=== PATIENT | female | born 1950 ===

== ENCOUNTER 2017-10-17 11:42 | Inpatient (IN) | payer MEDICARE ==
[~2017-10-17] VITALS: Ht 152.4 cm; Wt 32.7 kg
[2017-10-17] MEDS ORDERED: NKM (15:41)
[2017-10-17 16:00] VITALS: BP 129/65
--- NOTE | 2017-10-17 17:39 | Consultation ---
History of Present Illness General Date patient seen: Oct 17, 2017 Referring physician: Reji Reason for Consultation: abdomina pain Present Illness HPI 67F transferred from [place] to [facility] for acutely worsening abdominal pain, nausea , emesis, and syncopal episode. As patient and partner, she has been ill for over 1 year now with chronic abdominal pain and PO intolerance. Has been admitted to [facility] prior but does not recall if any etiology identified. Had abdominal surgery to evaluate and a benign "mass" was removed via salpingo- oophorectomy. States that 1 year ago she was well and weighted 125lbs. Since has not been eating and really unwell with pain and intolerance and now weights close to 70lbs. Last night attempted to eat soup but had extreme abdominal pain and developed nausea and 1 episode of emesis; then had syncopal episode. Went to [place] for evaluation and was then transferred to [facility] CT A/P without contrast demonstrated jejunal thickening but no acute abnormality. Leukocytosis of 20k. surgery called to evaluate. currently states "big appetite" but food aversion because of pain. refused to eat anything or drink anything "would rather ". pain described as cramping/sharp lower abdominal pain. some reflux. dry throat with difficulty swallowing. no n/v/f/c. history of chronic constipation. Allergies: Coded Allergies: AMOXICILLIN (Verified Adverse Reaction, Unknown, 10/17/17) Patient reports she fainted a couple years ago when she took amoxicillin Medication History Scheduled No Known Medications* (NKM - No Known Medications*), 0 ., (Reported) Patient History History Provided By: Patient, Family Member, Medical Record Healthcare decision maker Resuscitation status Full Code Advanced Directive on File Past Medical/Surgical History Past Medical/Surgical History: (1) Abdominal pain (2) History of food intolerance (3) Chronic abdominal pain (4) Failure to thrive in adult Review of Systems Constitutional: Reports: weakness Eye: Denies: no symptoms, see HPI, eye pain, blurred vision, tearing, double vision, nose pain, nose congestion, acuity changes, discharge, other ENT: Reports: mouth pain Respiratory: Denies: no symptoms, see HPI, cough, orthopnea, shortness of breath, stridor, wheezing, [place], sputum, other Cardiovascular: Denies: no symptoms, see HPI, chest pain, edema, palpitations, syncope, PND, other Gastrointestinal: Reports: abdominal pain, constipation Genitourinary: Denies: no symptoms, see HPI, discharge, dysuria, frequency, hematuria, pain, retention, incontinence, urgency, vag bleed/dc, other Musculoskeletal: Denies: no symptoms, see HPI, back pain, gout, joint pain, joint swelling, muscle pain, muscle stiffness, other Skin: Reports: dryness, Denies: no symptoms, see HPI, rash, change in color, change in hair/nails, lesions, other Psychiatric: Reports: anxiety Neurological: Denies: no symptoms, see HPI, headache, numbness, paresthesia, seizure, tingling, tremors, focal weakness, syncope, dizziness, other Endocrine: Denies: no symptoms, see HPI, excessive sweating, flushing, intolerance to temperature, increased thirst, increased urine, unexplained weight loss, other Hematologic/Lymphatic: Denies: no symptoms, see HPI, anemia, blood clots, easy bleeding, easy bruising, swollen glands, diathesis, other Physical Exam General Appearance: no apparent distress, alert, cachetic Lines, tubes and drains: peripheral HEENT: normocephalic, PERRL, other - dry Neck: supple, normal inspection Respiratory/Chest: lungs clear, normal breath sounds, no respiratory distress, no accessory muscle use Cardiovascular/Chest: normal peripheral pulses, regular rhythm Abdomen: normal bowel sounds, non tender, soft, no organomegaly, no mass Extremities: normal inspection Skin Exam: warm/dry Neurologic: alert, oriented x 3, responsive Height (Feet): 5 Weight (Pounds): 75 Assessment/Plan Problem List: (1) Chronic abdominal pain Assessment & Plan: 67F with chronic abdominal pain, po intolerance, failure to thrive, with acute episode of abdominal pain. was unable to tolerate soup yesterday, had pain, then emesis, then syncope. has long history of po intolerance and abdominal pain. has lost 40+ pounds over the last year because of this. states she was at [facility] with extensive work up but does not recall what or treatment. Currently pain improved but she is not willing to attempt oral intake. leukocytosis etiology needs work up. transferred from [place] for further care. -Obtain records from [facility]. -okay for diet if patient will eat -IV fluids -IV Abx -repeat CT with oral and IV contrast. non contrast CT not diagnostic but did show area of thickening in jejunum that should have better follow up eval. -trend labs -GI consult -will follow with recs thank you for this consultation. ICD Codes: R10.9 - Unspecified abdominal pain; G89.29 - Other chronic pain SNOMED: [id number] Status: stable Siva Avalos Oct 17, 2017 17:38
[2017-10-17] MEDS ORDERED: Morphine Sulfate 2mg/ml Inj IVP PRN (17:45)
[2017-10-17] MEDS ORDERED: D5 1/2NS 1,000 ML IV SCH (17:45)
[2017-10-17 19:06] LABS: BASOPHILS % (AUTO) 0.8 % (0.0-2.0); EOSINOPHILS % (AUTO) 0.3 % (0.0-3.0); HEMATOCRIT 37.6 % (37.0-47.0); HEMOGLOBIN 12.9 G/DL (12.0-16.0); MEAN CORPUSCULAR VOLUME 89 FL (80-99); MONOCYTES % (AUTO) 9.7 % (1.0-10.0); NEUTROPHILS % (AUTO) 70.2 % (45.0-75.0); PLATELET COUNT 206 K/UL (150-450); RED BLOOD COUNT 4.25 M/UL (4.20-5.40); RED CELL DISTRIBUTION WIDTH 10.5 % (11.6-14.8); WHITE BLOOD COUNT 12.4 K/UL (4.8-10.8)
[2017-10-17 19:08] LABS: ANION GAP 12 mmol/L (5-15); BLOOD UREA NITROGEN 19 mg/dL (7-18); CARBON DIOXIDE 25 MMOL/L (21-32); CHLORIDE 104 MMOL/L (98-107); POTASSIUM 3.8 MMOL/L (3.5-5.1); SODIUM 140 MMOL/L (136-145)
[2017-10-17] MEDS ORDERED: Zosyn 3.375gm q8h **Extended infusion IVPB ONE ×2 (19:30)
[2017-10-17 20:00] VITALS: BP 116/50
[2017-10-17] MEDS: Heparin 5000 units/ml inj SUBQ SCH (21:00)
[2017-10-18] VITALS (7 sets, daily range): BP systolic 98–151; BP diastolic 50–69
[2017-10-18] MEDS ORDERED: Piperacillin/Tazobactam 3.375 GM in NS 110 ML IVPB SCH (06:00)
[2017-10-18 07:42] LABS: ALANINE AMINOTRANSFERASE 8 U/L (12-78); ALBUMIN/GLOBULIN RATIO 0.9 (1.0-2.7); ALKALINE PHOSPHATASE 58 U/L (46-116); AMYLASE 66 U/L (25-115); ANION GAP 11 mmol/L (5-15); ASPARTATE AMINO TRANSFERASE 15 U/L (15-37); BILIRUBIN,TOTAL 0.7 MG/DL (0.2-1.0); BLOOD UREA NITROGEN 14 mg/dL (7-18); CALCIUM 7.8 MG/DL (8.5-10.1); CARBON DIOXIDE 22 MMOL/L (21-32); CHLORIDE 107 MMOL/L (98-107); CREATININE 0.9 MG/DL (0.55-1.30); POTASSIUM 3.6 MMOL/L (3.5-5.1); SODIUM 140 MMOL/L (136-145)
[2017-10-18 07:54] LABS: BASOPHILS % (AUTO) 0.5 % (0.0-2.0); EOSINOPHILS % (AUTO) 0.3 % (0.0-3.0); HEMATOCRIT 36.4 % (37.0-47.0); HEMOGLOBIN 12.7 G/DL (12.0-16.0); LYMPHOCYTES % (AUTO) 19.5 % (20.0-45.0); MEAN CORPUSCULAR VOLUME 90 FL (80-99); MONOCYTES % (AUTO) 7.8 % (1.0-10.0); NEUTROPHILS % (AUTO) 71.9 % (45.0-75.0); PLATELET COUNT 197 K/UL (150-450); RED BLOOD COUNT 4.04 M/UL (4.20-5.40); RED CELL DISTRIBUTION WIDTH 10.9 % (11.6-14.8); WHITE BLOOD COUNT 9.9 K/UL (4.8-10.8)
[2017-10-18] MEDS: Heparin 5000 units/ml inj SUBQ SCH ×3 (09:00→20:38)
[2017-10-18] MEDS ORDERED: Morphine Sulfate 2mg/ml Inj IVP PRN (11:00)
--- NOTE | 2017-10-18 11:05 | Wound Care Consultation ---
Wound Assessment Wound Assessment #1: Wound Number: 1 Wound Present on Admission: Yes New Wound: No Status Change of Wound: No Wound Location Body Site: other - sacrococcygeal extending to left buttocks Wound Type: pressure ulcer Laquita Test: Does not Laquita Pressure Ulcer Stage: Deep Tissue Injury Wound Thickness: Full Thickness Wound Length: 10.0 Wound Width: 8.0 Wound Depth: utd Percent of Wound [place]/Red: 50 - deep red Percent of Wound Purple/Maroon: 50 - middle noted deep red appearing maroon Wound Drainage Odor: None/Absent Tissue Surrounding Wound: Erythemic Wound General Appearance: Reddened - maroon Wound Assessment #2: Wound Number: 2 Wound Present on Admission: Yes New Wound: No Status Change of Wound: No Wound Location Body Site Modif: left Wound Location Body Site: heel Laquita Test: Laquita - blanchable redness Wound Length: 4.0 Wound Width: 4.0 Percent of Wound [place]/Red: 100 Wound Drainage Amount: None Wound Drainage Odor: None/Absent Tissue Surrounding Wound: Intact Wound General Appearance: Reddened, Open to air Wound Assessment #3: Wound Number: 3 Wound Present on Admission: Yes New Wound: No Status Change of Wound: No Wound Location Body Site Modif: right Wound Location Body Site: heel Laquita Test: Laquita - blanchable redness Wound Length: 4.0 Wound Width: 4.0 Percent of Wound [place]/Red: 100 Wound Drainage Amount: None Wound Drainage Odor: None/Absent Tissue Surrounding Wound: Intact Wound General Appearance: Reddened Wound Comment #1 Sacrococcygeal extending to left buttocks deep tissue injury. #2 left and right heel blanchable redness- continue to monitor for any further changes to skin, dry skin. patient able to self reposition, explained risks and benefits of repositioning and offloading heels and sacral area. verbalize she understands. Recommendation. -Local wound care as ordered. -Turn and reposition, encourage repositioning. -Keep clean and dry. -Optimize nutrition -Apply low air loss SPR mattress for wound and skin management. -Offload heels. -Assess and notify MD for any further changes of condition to skin noted. CHELSIE TORRES Oct 18, 2017 11:05
--- NOTE | 2017-10-18 11:07 | Consultation ---
History of Present Illness General Date patient seen: Oct 18, 2017 Time patient seen: 11:07 Referring physician: Reji Reason for Consultation: abdomina pain Present Illness HPI 67 y/o F with hx of chronic abd pain, PO intolerance and failure to thrive is transferred from [place] to [facility] 10/17 for acutely worsening abd pain, nausea, emesis and syncopal episode. She has been ill for over a year with chronic abd pain and PO intolerance with prior hospitalizations at [facility]. Underwent surgery to evaluate had a salpingo-oophorectomy for a supposedly benign mass. 1 year ago she weighted 125 lbs, now shes in the 70s lbs.1 day [employer] developed extreme abd pain, nausea and 1 episode of emesis while attempted to eat soup; this was followed by a syncopal episode. CT A/P showed jejunal thickening but no acute abnormality and WBC up to 20k. Denies f/c. +chronic constipation, +dry throat and difficulty swallowing. Afebrile Leukocytosis here initially 12.4, now rseolved. Started on empiric IV Zosyn. Surgery following. Allergies: Coded Allergies: AMOXICILLIN (Verified Adverse Reaction, Unknown, 10/17/17) Patient reports she fainted a couple years ago when she took amoxicillin Medication History Scheduled No Known Medications* (NKM - No Known Medications*), 0 ., (Reported) Patient History Healthcare decision maker Resuscitation status Full Code Advanced Directive on File Patient History Narrative PMhx: as above Shx: reviewed Fhx: non contributory Review of Systems All Other Systems: negative except mentioned in HPI Physical Exam Physical Exam Narrative General Appearance: no apparent distress, alert, cachetic Lines, tubes and drains: peripheral HEENT: normocephalic, PERRL, other - dry Neck: supple, normal inspection Respiratory/Chest: lungs clear, normal breath sounds, no respiratory distress, no accessory muscle use Cardiovascular/Chest: normal peripheral pulses, regular rhythm Abdomen: normal bowel sounds, non tender, soft, no organomegaly, no mass Extremities: normal inspection Skin Exam: warm/dry Neurologic: alert, oriented x 3, responsive Last 24 Hour Vital Signs Date Time Temp Pulse Resp B/P (MAP) Pulse Ox O2 Delivery O2 Flow Rate FiO2 10/18/17 08:36 97.9 40 16 144/61 98 Room Air 10/18/17 04:00 97.0 50 18 111/50 97 Room Air 10/18/17 00:00 97.5 60 18 120/50 96 Room Air 10/17/17 20:00 97.2 51 18 116/50 97 Room Air 10/17/17 16:00 97.9 54 18 129/65 98 Room Air Intake and Output 10/17/17 10/18/17 19:00 07:00 Intake Total 1000 ml Balance 1000 ml Intake IV Total 1000 ml # Voids 2 3 Laboratory Tests Test 10/17/17 18:45 10/18/17 05:10 White Blood Count 12.4 K/UL (4.8-10.8) H 9.9 K/UL (4.8-10.8) Red Blood Count 4.25 M/UL (4.20-5.40) 4.04 M/UL (4.20-5.40) L Hemoglobin 12.9 G/DL (12.0-16.0) 12.7 G/DL (12.0-16.0) Hematocrit 37.6 % (37.0-47.0) 36.4 % (37.0-47.0) L Mean Corpuscular Volume 89 FL (80-99) 90 FL (80-99) Mean Corpuscular Hemoglobin 30.4 PG (27.0-31.0) 31.5 PG (27.0-31.0) H Mean Corpuscular Hemoglobin Concent 34.4 G/DL (32.0-36.0) 34.9 G/DL (32.0-36.0) Red Cell Distribution Width 10.5 % (11.6-14.8) L 10.9 % (11.6-14.8) L Platelet Count 206 K/UL (150-450) 197 K/UL (150-450) Mean Platelet Volume 6.1 FL (6.5-10.1) L 7.4 FL (6.5-10.1) Neutrophils (%) (Auto) 70.2 % (45.0-75.0) 71.9 % (45.0-75.0) Lymphocytes (%) (Auto) 19.0 % (20.0-45.0) L 19.5 % (20.0-45.0) L Monocytes (%) (Auto) 9.7 % (1.0-10.0) 7.8 % (1.0-10.0) Eosinophils (%) (Auto) 0.3 % (0.0-3.0) 0.3 % (0.0-3.0) Basophils (%) (Auto) 0.8 % (0.0-2.0) 0.5 % (0.0-2.0) Sodium Level 140 MMOL/L (136-145) 140 MMOL/L (136-145) Potassium Level 3.8 MMOL/L (3.5-5.1) 3.6 MMOL/L (3.5-5.1) Chloride Level 104 MMOL/L (98-107) 107 MMOL/L (98-107) Carbon Dioxide Level 25 MMOL/L (21-32) 22 MMOL/L (21-32) Anion Gap 12 mmol/L (5-15) 11 mmol/L (5-15) Blood Urea Nitrogen 19 mg/dL (7-18) H 14 mg/dL (7-18) Creatinine 1.0 MG/DL (0.55-1.30) 0.9 MG/DL (0.55-1.30) Estimat Glomerular Filtration Rate 55.0 mL/min (>60) > 60 mL/min (>60) Glucose Level 92 MG/DL (74-106) 116 MG/DL (74-106) H Calcium Level 8.0 MG/DL (8.5-10.1) L 7.8 MG/DL (8.5-10.1) L Lactic Acid Level 1.20 mmol/L (0.66-2.22) Phosphorus Level 3.0 MG/DL (2.5-4.9) Magnesium Level 1.8 MG/DL (1.8-2.4) Total Bilirubin 0.7 MG/DL (0.2-1.0) Aspartate Amino Transf (AST/SGOT) 15 U/L (15-37) Alanine Aminotransferase (ALT/SGPT) 8 U/L (12-78) L Alkaline Phosphatase 58 U/L (46-116) C-Reactive Protein, Quantitative 4.8 mg/dL (0.00-0.90) H Total Protein 6.3 G/DL (6.4-8.2) L Albumin 3.0 G/DL (3.4-5.0) L Globulin 3.3 g/dL Albumin/Globulin Ratio 0.9 (1.0-2.7) L Prealbumin Pending Amylase Level 66 U/L (25-115) Lipase 170 U/L (73-393) Height (Feet): 5 Weight (Pounds): 75 Medications Current Medications Medications (Trade) Dose Ordered Sig/Riaz Route PRN Reason Start Time Stop Time Status Last Admin Dose Admin Acetaminophen (Tylenol) 650 mg Q6H PRN ORAL Mild Pain/Temp > 100.5 10/18/17 11:00 11/16/17 10:59 Dextrose/ Electrolytes 1,000 ml @ 100 mls/hr Q10H IV 10/18/17 16:00 11/16/17 15:59 Heparin Sodium (Porcine) (Heparin 5000 units/ml) 5,000 units EVERY 12 HOURS SUBQ 10/18/17 11:00 11/16/17 10:59 Morphine Sulfate (Morphine Sulfate) 2 mg Q6H PRN IVP Severe Pain (Pain Scale 7-10) 10/18/17 11:00 10/24/17 10:59 Ondansetron HCl (Zofran) 4 mg Q4H PRN IVP Nausea & Vomiting 10/18/17 11:00 11/16/17 10:59 Piperacillin Sod/ Tazobactam Sod 3.375 gm/Sodium Chloride 110 ml @ 27.5 mls/hr EVERY 8 HOURS IVPB 10/18/17 14:00 10/25/17 05:59 Assessment/Plan Assessment/Plan Abx: Zosyn 10/17- Assessment: Acute on chronic post-pandrial abd pain- unclear etiology. R/o acute infectious process. DDx of Etiology of chronic abd pain is extensive and includes infectious, auto-immune (connective tissue disorders, vasculitis such as Polyarteritis nodosa), inflammatory and psychogenic/psicosomatic. As far of infectious process r/o HIV, mycobacterial, histoplasmosis and parasitic causes. Dry throat and difficulty swallowing also raises suspicion of auto-immune process/connective tissue disorder such as Scleroderma. -CT abd/p w/ : Apparent mild thickening of the wall of the descending colon not optimally evaluated on this study. Please correlate for colitis.Mild free fluid within the pelvis. Suggestion of fibroid uterus. Atherosclerotic vascular disease -non contrast CT (@[facility])- jejunal wall thickening -CRP midly elevated at 4.8 Failure to thrive Leukocytosis, resolved -afebrile s/p salpingo-oopherectomy for bening mass Plan: -Continue empiric Zosyn #2/7-10 for possible acute superimposed colitis -obtain: HIV ag/b and VL, Qtb gold, histoplasma ag urine and ab, RPR, ANCA/ANCA , C3/C3, RF, CCP, hep panel, UPEP/SPEP, ESR, o+p x3, giardia/cyclospora/isospora /microsporidum stool, u/a with reflex -f/u cx -Monitor CBC/BMP, temperatures -surgery following -consider GI eval as well -if above w/u unrevealing may need intestinal biopsy to evaluate for CARVALHO/ vasculitis or other etiologies Thank you for this consultation. Will continue to follow along with you. Discussed with RN and at bedside. Aimee Deng M.D. Oct 18, 2017 11:07
--- NOTE | 2017-10-18 11:46 | General Surgery Progress Note ---
General Surgery-Progress Note Subjective Additional Comments Patient transferred to tele for bradycardia. today she is very emotionally uncertain. states she wants to eat but cannot. has a serious food aversion. states she does not want any artificial nutrition and absolutely refuses tubes or feeds. she states no pain currently but feels as if she may have severe pain with po intake. she is afraid to eat but fear is without organic etiology. she is emotionally and mentally not stable and cries multiple times during visit without reason. in middle of conversation she will begin to cry. she seems afraid but not of people but of anything (food, meds, fluids) entering her system. her story is not always consistent as yesterday she states that she had syncopal episode after attempting to eat soup. today she states that syncopal episode was after a self administered enema for constipation. CT reviewed. labs improved. Objective Last 24 Hour Vital Signs Date Time Temp Pulse Resp B/P (MAP) Pulse Ox O2 Delivery O2 Flow Rate FiO2 10/18/17 08:36 97.9 40 16 144/61 98 Room Air 10/18/17 04:00 97.0 50 18 111/50 97 Room Air 10/18/17 00:00 97.5 60 18 120/50 96 Room Air 10/17/17 20:00 97.2 51 18 116/50 97 Room Air 10/17/17 16:00 97.9 54 18 129/65 98 Room Air I&O Intake and Output 10/17/17 10/18/17 19:00 07:00 Intake Total 1000 ml Balance 1000 ml Intake IV Total 1000 ml # Voids 2 3 Cardiovascular: other - bradycardic Respiratory: clear Abdomen: soft, flat, other - very cachectic Extremities: no edema, no tenderness Laboratory Tests Test 10/17/17 18:45 10/18/17 05:10 White Blood Count 12.4 K/UL (4.8-10.8) H 9.9 K/UL (4.8-10.8) Red Blood Count 4.25 M/UL (4.20-5.40) 4.04 M/UL (4.20-5.40) L Hemoglobin 12.9 G/DL (12.0-16.0) 12.7 G/DL (12.0-16.0) Hematocrit 37.6 % (37.0-47.0) 36.4 % (37.0-47.0) L Mean Corpuscular Volume 89 FL (80-99) 90 FL (80-99) Mean Corpuscular Hemoglobin 30.4 PG (27.0-31.0) 31.5 PG (27.0-31.0) H Mean Corpuscular Hemoglobin Concent 34.4 G/DL (32.0-36.0) 34.9 G/DL (32.0-36.0) Red Cell Distribution Width 10.5 % (11.6-14.8) L 10.9 % (11.6-14.8) L Platelet Count 206 K/UL (150-450) 197 K/UL (150-450) Mean Platelet Volume 6.1 FL (6.5-10.1) L 7.4 FL (6.5-10.1) Neutrophils (%) (Auto) 70.2 % (45.0-75.0) 71.9 % (45.0-75.0) Lymphocytes (%) (Auto) 19.0 % (20.0-45.0) L 19.5 % (20.0-45.0) L Monocytes (%) (Auto) 9.7 % (1.0-10.0) 7.8 % (1.0-10.0) Eosinophils (%) (Auto) 0.3 % (0.0-3.0) 0.3 % (0.0-3.0) Basophils (%) (Auto) 0.8 % (0.0-2.0) 0.5 % (0.0-2.0) Sodium Level 140 MMOL/L (136-145) 140 MMOL/L (136-145) Potassium Level 3.8 MMOL/L (3.5-5.1) 3.6 MMOL/L (3.5-5.1) Chloride Level 104 MMOL/L (98-107) 107 MMOL/L (98-107) Carbon Dioxide Level 25 MMOL/L (21-32) 22 MMOL/L (21-32) Anion Gap 12 mmol/L (5-15) 11 mmol/L (5-15) Blood Urea Nitrogen 19 mg/dL (7-18) H 14 mg/dL (7-18) Creatinine 1.0 MG/DL (0.55-1.30) 0.9 MG/DL (0.55-1.30) Estimat Glomerular Filtration Rate 55.0 mL/min (>60) > 60 mL/min (>60) Glucose Level 92 MG/DL (74-106) 116 MG/DL (74-106) H Calcium Level 8.0 MG/DL (8.5-10.1) L 7.8 MG/DL (8.5-10.1) L Lactic Acid Level 1.20 mmol/L (0.66-2.22) Phosphorus Level 3.0 MG/DL (2.5-4.9) Magnesium Level 1.8 MG/DL (1.8-2.4) Total Bilirubin 0.7 MG/DL (0.2-1.0) Aspartate Amino Transf (AST/SGOT) 15 U/L (15-37) Alanine Aminotransferase (ALT/SGPT) 8 U/L (12-78) L Alkaline Phosphatase 58 U/L (46-116) C-Reactive Protein, Quantitative 4.8 mg/dL (0.00-0.90) H Total Protein 6.3 G/DL (6.4-8.2) L Albumin 3.0 G/DL (3.4-5.0) L Globulin 3.3 g/dL Albumin/Globulin Ratio 0.9 (1.0-2.7) L Prealbumin Pending Amylase Level 66 U/L (25-115) Lipase 170 U/L (73-393) Plan Problems: (1) Chronic abdominal pain Assessment & Plan: 67F with chronic abdominal pain, po intolerance, failure to thrive, with acute episode of abdominal pain. has long history of po intolerance and abdominal pain. has lost 40+ pounds over the last year because of this. states she was at [facility] with extensive work up but does not recall what or treatment. Currently pain improved but she is not willing to attempt oral intake. transferred from [place] for further care. leukocytosis resolved. bradycardic. no pain but serious food aversion. has emotional and mental issues that are apparent when she is interviewed. she refuses interventions when offered. she will agree to some (CT scan, IV fluids , now IV abx) but refuses to eat, take oral meds, feeds, etc. Repeat CT reviewed. pending final read -Psych Consult -Requested records from [facility]. pending delivery -okay for diet if patient will eat -IV fluids -IV Abx -will follow with recs thank you for this consultation. Siva Avalos Oct 18, 2017 11:46
--- NOTE | 2017-10-18 12:52 | Diagnostic Imaging Report ---
Indication: Abdominal pain Technique: Continuous helical transaxial imaging of the abdomen and pelvis was obtained from the lung bases to the pubic symphysis during intravenous contrast administration. Coronal 2-D reformats were also obtained. Study obtained in a Siemens sensation [address] Automatic Exposure Control was utilized. Total Dose length Product (DLP): 440.[address] Dose Index Volume (CTDIvol): 9.13 mGy Comparison: None Findings: The lung bases are clear. There is a relative paucity of intra-abdominal fat. The gallbladder, pancreas, kidneys and liver and spleen are unremarkable. The aorta is mildly calcified. No bowel obstruction or free air identified. There is a small amount of free fluid in the pelvis. Heterogeneous structure with calcification noted in the pelvis likely representing fibroid uterus. The bladder is nondistended. The appendix is not definitely seen. There is questionable wall thickening involving the visualized part of the descending colon. Correlate for colitis. IMPRESSION: Apparent mild thickening of the wall of the descending colon not optimally evaluated on this study. Please correlate for colitis. Mild free fluid within the pelvis. Suggestion of fibroid uterus. Atherosclerotic vascular disease The CT scanner at [facility] is accredited by the [employer] and the scans are performed using dose optimization techniques as appropriate to a performed exam including Automatic Exposure control.
[2017-10-18] MEDS: Piperacillin/Tazobactam 3.375 GM in NS 110 ML IVPB SCH ×2 (14:26→22:39)
--- NOTE | 2017-10-18 15:16 | Consultation ---
History of Present Illness General Date patient seen: Oct 18, 2017 Referring physician: Reji Reason for Consultation: abdomina pain Present Illness HPI 67 year old female with extensive hx of GI issues was taken to [facility] with CC of increased abdominal pain. After initial work up, she [place] [facility] [place]. Pt claims that anytime she eats, she vomits. The at the bed site states that she had extensive w/u at [facility], but he doesn't want us to ge their records. Allergies: Coded Allergies: AMOXICILLIN (Verified Adverse Reaction, Unknown, 10/17/17) Patient reports she fainted a couple years ago when she took amoxicillin Medication History Scheduled No Known Medications* (NKM - No Known Medications*), 0 ., (Reported) Patient History Healthcare decision maker Resuscitation status Full Code Advanced Directive on File Past Medical/Surgical History Past Medical/Surgical History: (1) History of food intolerance (2) Failure to thrive in adult Review of Systems Constitutional: Reports: malaise, weakness Eye: Reports: no symptoms ENT: Reports: no symptoms Physical Exam General Appearance: WD/WN, mild distress Lines, tubes and drains: peripheral HEENT: normocephalic, atraumatic Respiratory/Chest: chest wall non-tender, lungs clear, normal breath sounds, no respiratory distress Last 24 Hour Vital Signs Date Time Temp Pulse Resp B/P (MAP) Pulse Ox O2 Delivery O2 Flow Rate FiO2 10/18/17 12:00 97.8 38 20 119/64 100 Room Air 10/18/17 08:36 97.9 40 16 144/61 98 Room Air 10/18/17 04:00 97.0 50 18 111/50 97 Room Air 10/18/17 00:00 97.5 60 18 120/50 96 Room Air 10/17/17 20:00 97.2 51 18 116/50 97 Room Air 10/17/17 16:00 97.9 54 18 129/65 98 Room Air Intake and Output 10/17/17 10/18/17 19:00 07:00 Intake Total 1000 ml Balance 1000 ml Intake IV Total 1000 ml # Voids 2 3 Laboratory Tests Test 10/17/17 18:45 10/18/17 05:10 White Blood Count 12.4 K/UL (4.8-10.8) H 9.9 K/UL (4.8-10.8) Red Blood Count 4.25 M/UL (4.20-5.40) 4.04 M/UL (4.20-5.40) L Hemoglobin 12.9 G/DL (12.0-16.0) 12.7 G/DL (12.0-16.0) Hematocrit 37.6 % (37.0-47.0) 36.4 % (37.0-47.0) L Mean Corpuscular Volume 89 FL (80-99) 90 FL (80-99) Mean Corpuscular Hemoglobin 30.4 PG (27.0-31.0) 31.5 PG (27.0-31.0) H Mean Corpuscular Hemoglobin Concent 34.4 G/DL (32.0-36.0) 34.9 G/DL (32.0-36.0) Red Cell Distribution Width 10.5 % (11.6-14.8) L 10.9 % (11.6-14.8) L Platelet Count 206 K/UL (150-450) 197 K/UL (150-450) Mean Platelet Volume 6.1 FL (6.5-10.1) L 7.4 FL (6.5-10.1) Neutrophils (%) (Auto) 70.2 % (45.0-75.0) 71.9 % (45.0-75.0) Lymphocytes (%) (Auto) 19.0 % (20.0-45.0) L 19.5 % (20.0-45.0) L Monocytes (%) (Auto) 9.7 % (1.0-10.0) 7.8 % (1.0-10.0) Eosinophils (%) (Auto) 0.3 % (0.0-3.0) 0.3 % (0.0-3.0) Basophils (%) (Auto) 0.8 % (0.0-2.0) 0.5 % (0.0-2.0) Sodium Level 140 MMOL/L (136-145) 140 MMOL/L (136-145) Potassium Level 3.8 MMOL/L (3.5-5.1) 3.6 MMOL/L (3.5-5.1) Chloride Level 104 MMOL/L (98-107) 107 MMOL/L (98-107) Carbon Dioxide Level 25 MMOL/L (21-32) 22 MMOL/L (21-32) Anion Gap 12 mmol/L (5-15) 11 mmol/L (5-15) Blood Urea Nitrogen 19 mg/dL (7-18) H 14 mg/dL (7-18) Creatinine 1.0 MG/DL (0.55-1.30) 0.9 MG/DL (0.55-1.30) Estimat Glomerular Filtration Rate 55.0 mL/min (>60) > 60 mL/min (>60) Glucose Level 92 MG/DL (74-106) 116 MG/DL (74-106) H Calcium Level 8.0 MG/DL (8.5-10.1) L 7.8 MG/DL (8.5-10.1) L Lactic Acid Level 1.20 mmol/L (0.66-2.22) Phosphorus Level 3.0 MG/DL (2.5-4.9) Magnesium Level 1.8 MG/DL (1.8-2.4) Total Bilirubin 0.7 MG/DL (0.2-1.0) Aspartate Amino Transf (AST/SGOT) 15 U/L (15-37) Alanine Aminotransferase (ALT/SGPT) 8 U/L (12-78) L Alkaline Phosphatase 58 U/L (46-116) C-Reactive Protein, Quantitative 4.8 mg/dL (0.00-0.90) H Total Protein 6.3 G/DL (6.4-8.2) L Albumin 3.0 G/DL (3.4-5.0) L Globulin 3.3 g/dL Albumin/Globulin Ratio 0.9 (1.0-2.7) L Prealbumin Pending Amylase Level 66 U/L (25-115) Lipase 170 U/L (73-393) Height (Feet): 5 Weight (Pounds): 75 Medications Current Medications Medications (Trade) Dose Ordered Sig/Riaz Route PRN Reason Start Time Stop Time Status Last Admin Dose Admin Acetaminophen (Tylenol) 650 mg Q6H PRN ORAL Mild Pain/Temp > 100.5 10/18/17 11:00 11/16/17 10:59 Dextrose/ Electrolytes 1,000 ml @ 100 mls/hr Q10H IV 10/18/17 16:00 11/16/17 15:59 Heparin Sodium (Porcine) (Heparin 5000 units/ml) 5,000 units EVERY 12 HOURS SUBQ 10/18/17 11:00 11/16/17 10:59 Morphine Sulfate (Morphine Sulfate) 2 mg Q6H PRN IVP Severe Pain (Pain Scale 7-10) 10/18/17 11:00 10/24/17 10:59 Ondansetron HCl (Zofran) 4 mg Q4H PRN IVP Nausea & Vomiting 10/18/17 11:00 11/16/17 10:59 Piperacillin Sod/ Tazobactam Sod 3.375 gm/Sodium Chloride 110 ml @ 27.5 mls/hr EVERY 8 HOURS IVPB 10/18/17 14:00 10/25/17 05:59 10/18/17 14:26 Vitamin A/Vitamin D (A & D Oint) 1 applic EVERY 12 HOURS TOPIC 10/18/17 21:00 11/17/17 20:59 Assessment/Plan Problem List: (1) Failure to thrive in adult ICD Codes: R62.7 - Adult failure to thrive SNOMED: 227704502 (2) Severe protein-calorie malnutrition ICD Codes: E43 - Unspecified severe protein-calorie malnutrition SNOMED: 838225350 (3) Abdominal pain ICD Codes: R10.9 - Unspecified abdominal pain SNOMED: 08354355 (4) History of food intolerance ICD Codes: Z87.19 - Personal history of other diseases of the digestive system SNOMED: 151186835 Assessment/Plan calorie count psych and GI evaluation trial of Marinol rule out occult malignancy. MYESHA OVERTON Oct 18, 2017 15:16
--- NOTE | 2017-10-18 16:22 | History & Physical ---
History and Physical History & Physicial Dictated for Int Ju-Dr Mendoza no. [id number]. STEPHEN HERRMANN Oct 18, 2017 16:22
[2017-10-18] MEDS: Dronabinol 2.5mg Cap ORAL SCH ×2 (18:00→18:23)
[2017-10-18] MEDS: Vitamin A&D Oint 2oz Tube TOPIC SCH (20:38)
[2017-10-18 23:54] LABS: APPEARANCE,URINE CLEAR; BILIRUBIN, URINE NEGATIVE (NEGATIVE); COLOR,URINE PALE YELLOW; GLUCOSE, URINE (UA) NEGATIVE (NEGATIVE); KETONES,URINE 1+ (NEGATIVE); LEUKOCYTE ESTERASE ,URINE NEGATIVE (NEGATIVE); NITRITE,URINE NEGATIVE (NEGATIVE); PH,URINE 6 (4.5-8.0); PROTEIN,URINE NEGATIVE (NEGATIVE); UROBILINOGEN,URINE NORMAL MG/DL (0.0-1.0)
[2017-10-19 00:47] VITALS: BP 120/56
[2017-10-19 04:25] VITALS: BP 166/61
[2017-10-19] MEDS: Piperacillin/Tazobactam 3.375 GM in NS 110 ML IVPB SCH (05:50)
[2017-10-19 08:00] VITALS: BP 147/57
[2017-10-19] MEDS: Heparin 5000 units/ml inj SUBQ SCH ×2 (09:00→21:00)
[2017-10-19] MEDS: Vitamin A&D Oint 2oz Tube TOPIC SCH ×2 (09:00→21:26)
[2017-10-19 09:22] LABS: ALANINE AMINOTRANSFERASE 15 U/L (12-78); ALBUMIN 3.1 G/DL (3.4-5.0); ALKALINE PHOSPHATASE 54 U/L (46-116); ANION GAP 12 mmol/L (5-15); ASPARTATE AMINO TRANSFERASE 22 U/L (15-37); BLOOD UREA NITROGEN 6 mg/dL (7-18); CALCIUM 8.6 MG/DL (8.5-10.1); CARBON DIOXIDE 22 MMOL/L (21-32); CHLORIDE 105 MMOL/L (98-107); CREATININE 0.7 MG/DL (0.55-1.30); POTASSIUM 3.9 MMOL/L (3.5-5.1); SODIUM 139 MMOL/L (136-145)
[2017-10-19] MEDS: Dronabinol 2.5mg Cap ORAL SCH ×3 (09:38→18:00)
--- NOTE | 2017-10-19 09:42 | Progress Note ---
DATE: 10/18/2017 SUBJECTIVE: The patient is presenting with anxiety, agitation, depressed mood, anhedonia, worthlessness, hopelessness, decreased energy, and poor insight and judgment into her mental condition. The patient apparently has had several hospitalizations in the past year. Her , who is at the bedside, stated that the patient does not have any medical issues. The patient is severely anxious. MENTAL STATUS EXAMINATION: The patient is alert and oriented times self, place, and situation she is in. Mood is anxious. Affect is constricted. Congruent with mood. Thought process is concrete. Thought content, no suicidal or homicidal ideations. ASSESSMENT: 1. Anxiety disorder, rule out major depressive disorder. 2. Failure to thrive. PLAN: 1. We will start the patient on 15 mg of Remeron at bedtime. 2. Provide the patient with supportive therapy and reality orientation. Berto Cardozo M.D. DR: STEPHON JOB#: [id number] CC:
--- NOTE | 2017-10-19 09:43 | Consultation ---
DATE OF CONSULTATION: 10/17/2017 HISTORY OF PRESENT ILLNESS: The patient is a 67-year-old female with history of upper abdominal pain, who has been admitted from the [facility] with severe abdominal pain. Per her , the patient has had several hospitalizations, full workups, and the patient is also anxious, agitated, and has been unable to sleep. She stated that she has lost so much weight over the past year. Poor insight and judgment into her medical condition. PAST PSYCHIATRIC HISTORY: The patient denies any psychiatric history. Not on any psychotropic medication. Denies any psychiatric hospitalization. No suicide attempt. PAST MEDICAL HISTORY: Failure to thrive. ALLERGIES: Amoxicillin. SUBSTANCE ABUSE HISTORY: No history of illicit drug use or alcohol. MENTAL STATUS EXAMINATION: The patient is alert, oriented times self, place, and situation she is in. Mood is anxious. Affect is constricted. Congruent mood. Thought process is concrete. Thought content, no suicidal or homicidal ideations. ASSESSMENT: AXIS I Anxiety disorder, rule out major depressive disorder. AXIS II Deferred. AXIS III As above. AXIS IV Low. AXIS V Global assessment of functioning is 20. PLAN: 1. The patient will be continued on current medication. 2. Provide the patient with supportive therapy and reality orientation. We will continue to follow and readjust the medications. Berto Cardozo M.D. DR: [place] JOB#: [id number] CC:
--- NOTE | 2017-10-19 09:43 | History and Physical Report ---
DATE OF ADMISSION: 10/18/2017 CHIEF COMPLAINT: The patient is a 67-year-old white female, presents with chief complaint of abdominal pain. HISTORY OF PRESENT ILLNESS: The patient states she has had nonspecific abdominal pain for approximately six months. The patient states "I am unable to eat." The patient states every time she eats, she experiences lower abdominal pain. The patient presented to [facility] emergency room yesterday, 10/17/2017. The patient states the pain got much worse. The patient vomited one time. An initial CT scan of the abdomen showed distal jejunal inflammation. The patient is admitted for enteritis and abdominal pain. PAST MEDICAL HISTORY: The patient denies. PAST SURGICAL HISTORY: Significant for salpingo-oophorectomy at [facility] in 2017. CURRENT MEDICATIONS: The patient denies. ALLERGIES: To amoxicillin. SOCIAL HISTORY: The patient is and is retired. The patient denies tobacco or alcohol use. REVIEW OF SYSTEMS: CONSTITUTIONAL: The patient denies fevers or chills. HEENT: The patient denies ear or throat pain. The patient denies headache. CARDIOVASCULAR: The patient denies palpitations or chest pain. CHEST: The patient denies wheeze or shortness of breath. ABDOMEN: The patient complains of lower quadrant pain as above. The patient denies diarrhea or constipation. The patient complains of occasional nausea. The patient admits to emesis x1. NEUROMUSCULAR: The patient denies seizures or generalized weakness. GENITOURINARY: The patient denies dysuria or increased frequency of urination. PHYSICAL EXAMINATION: VITAL SIGNS: Temperature is 97.9 degrees, respirations 18, pulse 54, and blood pressure 129/65. GENERAL: The patient is a well-nourished and thin-appearing white female, in no apparent distress. HEENT: Eyes, pupils are equal and responsive to light and accommodation. Extraocular movements are intact. NECK: Supple without lymphadenopathy. CHEST: Lungs are clear to auscultation bilaterally without wheezes or rales. CARDIOVASCULAR: Regular rate. S1, S2 normal without murmurs, rubs, or gallops. ABDOMEN: Soft, nondistended with positive bowel sounds. There is voluntary guarding in bilateral lower quadrants. There is no rebound noted. EXTREMITIES: Negative for clubbing, cyanosis, or edema. RECTAL/GENITAL: Refused. NEUROLOGIC: Cranial nerves II to XII are grossly intact without focal deficits. Motor strength is 5/5 bilaterally. DTRs reflexes are 2+ plantar. LABORATORY AND DIAGNOSTIC STUDIES: WBC from [place] 20.2, hemoglobin 14.5, hematocrit 42.1, and platelets 205,000. Sodium 137, potassium 4.1, chloride 101, CO2 23, BUN 24, and creatinine 0.95. Lipase is normal at 20. A CT scan of the abdomen showed long segment of nonspecific circumferential wall thickening of the distal jejunum consistent with inflammatory process. Glucose was slightly elevated at 178. ASSESSMENT: This is a 67-year-old white female, 1. Left lower quadrant pain. 2. Enteritis. 3. Weight loss. 4. Nausea and vomiting. TREATMENT: Abdominal pain/nausea/vomiting/enteritis. A Surgery consultation will be obtained with Dr. Avalos. A Gastroenterology consultation will be obtained with Dr. Bradford. A repeat CAT scan is pending. We will follow recommendations of Surgery and Gastroenterology. The patient is currently NPO. Tyler Cavazos M.D. DR: Lawrence JOB#: [id number] CC:
[2017-10-19 09:44] LABS: BASOPHILS % (AUTO) 1.2 % (0.0-2.0); EOSINOPHILS % (AUTO) 0.2 % (0.0-3.0); HEMATOCRIT 35.8 % (37.0-47.0); HEMOGLOBIN 12.4 G/DL (12.0-16.0); LYMPHOCYTES % (AUTO) 24.9 % (20.0-45.0); MEAN CORPUSCULAR VOLUME 88 FL (80-99); MONOCYTES % (AUTO) 9.2 % (1.0-10.0); NEUTROPHILS % (AUTO) 64.5 % (45.0-75.0); PLATELET COUNT 202 K/UL (150-450); RED BLOOD COUNT 4.05 M/UL (4.20-5.40); RED CELL DISTRIBUTION WIDTH 10.3 % (11.6-14.8); WHITE BLOOD COUNT 6.3 K/UL (4.8-10.8)
--- NOTE | 2017-10-19 11:18 | Infectious Diseases Prog Note ---
Assessment/Plan Assessment/Plan Abx: Zosyn 10/17- Assessment: Acute on chronic post-pandrial abd pain- unclear etiology--?acute superimposed colitis per CT findings. DDx of Etiology of chronic abd pain is extensive and includes infectious, auto-immune (connective tissue disorders, vasculitis such as Polyarteritis nodosa), inflammatory and psychogenic/psicosomatic. As far of infectious process r/o HIV, mycobacterial, histoplasmosis and parasitic causes. Dry throat and difficulty swallowing also raises suspicion of auto-immune process/connective tissue disorder such as Scleroderma. -CT abd/p w/ : Apparent mild thickening of the wall of the descending colon not optimally evaluated on this study. Please correlate for colitis.Mild free fluid within the pelvis. Suggestion of fibroid uterus. Atherosclerotic vascular disease -non contrast CT (@[place])- jejunal wall thickening -CRP midly elevated at 4.8, ESR 31 -neg: HIV 1/2 ab (rapid test), u/a Failure to thrive Leukocytosis, resolved -afebrile s/p salpingo-oopherectomy for bening mass Plan: -Switch empiric Zosyn #3/7-10 to Ceftriaxone and Flagyl for possible acute superimposed colitis -f/u HIV VL, Qtb gold, histoplasma ag urine and ab, RPR, ANCA/ANCA, C3/C3, RF, CCP, hep panel, UPEP/SPEP, ESR, o+p x3, giardia/cyclospora/isospora/ microsporidum stool -f/u cx -Monitor CBC/BMP, temperatures -surgery following -GI eval pending -if above w/u unrevealing may need intestinal biopsy to evaluate for CARVALHO/ vasculitis or other etiologies -awaiting [facility] records Thank you for this consultation. Will continue to follow along with you. Discussed with RN and at bedside and Dr Avalos Subjective Allergies: Coded Allergies: AMOXICILLIN (Verified Adverse Reaction, Unknown, 10/17/17) Patient reports she fainted a couple years ago when she took amoxicillin Subjective afebrile no leukocytosis awaiting [facility] records Objective Vital Signs Last 24 Hour Vital Signs Date Time Temp Pulse Resp B/P (MAP) Pulse Ox O2 Delivery O2 Flow Rate FiO2 10/19/17 08:00 96.9 38 18 147/57 96 Room Air 10/19/17 04:25 Room Air 10/19/17 04:25 96.9 44 20 166/61 100 Room Air 10/19/17 04:00 40 10/19/17 00:47 97.0 45 20 120/56 98 Room Air 10/19/17 00:47 Room Air 10/19/17 00:00 40 10/18/17 20:43 97.0 128 22 98/53 100 Room Air 10/18/17 20:43 Room Air 10/18/17 20:40 97.0 128 22 98/53 100 Room Air 10/18/17 20:00 42 10/18/17 16:00 97.2 42 20 151/69 97 Room Air 10/18/17 16:00 42 10/18/17 12:00 38 10/18/17 12:00 97.8 38 20 119/64 100 Room Air Height (Feet): 5 Weight (Pounds): 75 Objective General Appearance: no apparent distress, alert, cachetic Lines, tubes and drains: peripheral HEENT: normocephalic, PERRL, other - dry, no oral lesions Neck: supple, normal inspection Respiratory/Chest: lungs clear, normal breath sounds, no respiratory distress, no accessory muscle use Cardiovascular/Chest: normal peripheral pulses, regular rhythm Abdomen: decreased bowel sounds, diffuse abd tenderness, soft, no organomegaly , no mass Extremities: normal inspection, no swollen,erythematous or tender joints Skin Exam: warm/dry, no rash Neurologic: alert, oriented x 3, responsive Laboratory Tests Test 10/18/17 21:25 10/19/17 08:30 10/19/17 09:35 Urine Color Pale yellow Urine Appearance Clear Urine pH 6 (4.5-8.0) Urine Specific [place] 1.010 (1.005-1.035) Urine Protein Negative (NEGATIVE) Urine Glucose (UA) Negative (NEGATIVE) Urine Ketones 1+ (NEGATIVE) H Urine Occult Blood 2+ (NEGATIVE) H Urine Nitrite Negative (NEGATIVE) Urine Bilirubin Negative (NEGATIVE) Urine Urobilinogen Normal MG/DL (0.0-1.0) Urine Leukocyte Esterase Negative (NEGATIVE) Urine RBC 2-4 /HPF (0 - 2) H Urine WBC 0 /HPF (0 - 2) Urine Squamous Epithelial Cells Few /LPF (NONE/OCC) Urine Bacteria None /HPF (NONE) Urine Total Protein Pending Urine Albumin (%) Pending Urine Seyfe-1-Aagqlkpyx (%) Pending Urine Oxxpf-7-Yylpbwnxs (%) Pending Urine Beta-Globulin (%) Pending Urine Gamma Globulin (%) Pending Ur Protein Electrophoresis M-Сергей Pending Urine Protein Electrophoresis Intrp Pending Histoplasma Antigen Pending Sodium Level 139 MMOL/L (136-145) Potassium Level 3.9 MMOL/L (3.5-5.1) Chloride Level 105 MMOL/L (98-107) Carbon Dioxide Level 22 MMOL/L (21-32) Anion Gap 12 mmol/L (5-15) Blood Urea Nitrogen 6 mg/dL (7-18) L Creatinine 0.7 MG/DL (0.55-1.30) Estimat Glomerular Filtration Rate > 60 mL/min (>60) Glucose Level 124 MG/DL (74-106) H Calcium Level 8.6 MG/DL (8.5-10.1) Phosphorus Level 3.0 MG/DL (2.5-4.9) Magnesium Level 1.6 MG/DL (1.8-2.4) L Total Bilirubin 1.0 MG/DL (0.2-1.0) Aspartate Amino Transf (AST/SGOT) 22 U/L (15-37) Alanine Aminotransferase (ALT/SGPT) 15 U/L (12-78) Alkaline Phosphatase 54 U/L (46-116) C-Reactive Protein, Quantitative 2.5 mg/dL (0.00-0.90) H Total Protein 6.3 G/DL (6.4-8.2) L Albumin 3.1 G/DL (3.4-5.0) L Globulin 3.2 g/dL Albumin/Globulin Ratio 1.0 (1.0-2.7) Pending White Blood Count 6.3 K/UL (4.8-10.8) Red Blood Count 4.05 M/UL (4.20-5.40) L Hemoglobin 12.4 G/DL (12.0-16.0) Hematocrit 35.8 % (37.0-47.0) L Mean Corpuscular Volume 88 FL (80-99) Mean Corpuscular Hemoglobin 30.6 PG (27.0-31.0) Mean Corpuscular Hemoglobin Concent 34.6 G/DL (32.0-36.0) Red Cell Distribution Width 10.3 % (11.6-14.8) L Platelet Count 202 K/UL (150-450) Mean Platelet Volume 6.7 FL (6.5-10.1) Neutrophils (%) (Auto) 64.5 % (45.0-75.0) Lymphocytes (%) (Auto) 24.9 % (20.0-45.0) Monocytes (%) (Auto) 9.2 % (1.0-10.0) Eosinophils (%) (Auto) 0.2 % (0.0-3.0) Basophils (%) (Auto) 1.2 % (0.0-2.0) Erythrocyte Sedimentation Rate 31 MM/HR (0-30) H Total Protein (PEP) Pending Albumin (PEP) Pending Globulin (PEP) Pending Swhvo-6-Vdbigwlgu Pending Apapk-7-Cgqhuqumz Pending Beta Globulins Pending Beta Gamma Globulin Pending PEP Abnormal Protein Bands Pending Protein Electrophoresis Interpret Pending Cryoglobulin Pending Cryoglobulin, Quant (Cryocrit) Pending Rheumatoid Factor Screen Pending Cyclic Citrullinated Peptide IgG Ab Pending Anti-Nuclear Antibody Screen Pending c-ANCA Titer Pending p-ANCA Titer Pending Complement C3 Pending Complement C4 Pending Rapid Plasma Reagin Pending Hepatitis A IgM Antibody Pending Hepatitis B Surface Antigen Pending Hepatitis B Surface Antibody Pending Hepatitis B Core Total Antibody Pending Hepatitis B Core IgM Antibody Pending Hepatitis C Antibody Pending Histoplasma Mycelial Antibody Pending Histoplasma Antibody w Mycelial Ag Pending Histoplasma Antibody with Yeast Ag Pending HIV-1 RNA (PCR) log10 Value Pending HIV-1 RNA Ultraquantitative (PCR) Pending HIV (1&2) Antibody Rapid Negative (NEGATIVE) Current Medications Medications (Trade) Dose Ordered Sig/Riaz Route PRN Reason Start Time Stop Time Status Last Admin Dose Admin Acetaminophen (Tylenol) 650 mg Q6H PRN ORAL Mild Pain/Temp > 100.5 10/18/17 11:00 11/16/17 10:59 Dextrose/ Electrolytes 1,000 ml @ 100 mls/hr Q10H IV 10/18/17 16:00 11/16/17 15:59 10/19/17 02:11 Dronabinol (Marinol) 2.5 mg TID ORAL 10/18/17 18:00 2/8/18 17:59 10/19/17 09:38 Heparin Sodium (Porcine) (Heparin 5000 units/ml) 5,000 units EVERY 12 HOURS SUBQ 10/18/17 11:00 11/16/17 10:59 Mirtazapine (Remeron) 15 mg BEDTIME ORAL 10/18/17 21:00 11/17/17 20:59 Morphine Sulfate (Morphine Sulfate) 2 mg Q6H PRN IVP Severe Pain (Pain Scale 7-10) 10/18/17 11:00 10/24/17 10:59 Ondansetron HCl (Zofran) 4 mg Q4H PRN IVP Nausea & Vomiting 10/18/17 11:00 11/16/17 10:59 Piperacillin Sod/ Tazobactam Sod 3.375 gm/Sodium Chloride 110 ml @ 27.5 mls/hr EVERY 8 HOURS IVPB 10/18/17 14:00 10/25/17 05:59 10/19/17 05:50 Vitamin A/Vitamin D (A & D Oint) 1 applic EVERY 12 HOURS TOPIC 10/18/17 21:00 11/17/17 20:59 10/18/17 20:38 Aimee Deng M.D. Oct 19, 2017 11:18
[2017-10-19 12:00] VITALS: BP 141/71
--- NOTE | 2017-10-19 13:15 | GI Initial Consult Note ---
Goncalves,Samra Darren N.PMichael 10/19/17 1315: History of Present Illness General Date patient seen: Oct 19, 2017 Time patient seen: 11:00 Referring physician: Reji Reason for Consultation: abdomina pain Present Illness HPI The patient states she has had nonspecific abdominal pain for approximately six months. The patient states "I am unable to eat." The patient states every time she eats, she experiences lower abdominal pain. The patient presented to [facility] emergency room yesterday, 10/17/2017. The patient states the pain got much worse. The patient vomited one time. An initial CT scan of the abdomen showed distal jejunal inflammation. The patient is admitted for enteritis and abdominal pain. Gi consulted for abdominal pain. HPI noted above. Pt seen on floor, awake A&O NAD with no active s/sx of N/V/D with by bedside. The patient presents today with weight loss over 40lbs in the past year. She states she has an appetite, but cannot eat because it causes her abdominal pain. CT AP showed wall thickening in the colon, suspect for colitis, however, the patient denies any diarrhea. She states she's been constipated for 3-4 days. Patient state she's had an previous EGD performed and sufferes from reflux disease. No history of colonoscopy, patient refuses to have it done here. Home Meds Reported Medications No Known Medications* (NKM - No Known Medications*) ., 0 ., 0 Refills 10/17/17 Med list reviewed/reconciled: Yes Allergies: Coded Allergies: AMOXICILLIN (Verified Adverse Reaction, Unknown, 10/17/17) Patient reports she fainted a couple years ago when she took amoxicillin Patient History Limited by: medical condition History Provided By: Family Member, Medical Record [facility] Narrative PAST MEDICAL HISTORY: The patient denies. PAST SURGICAL HISTORY: Significant for salpingo-oophorectomy at [facility] in 2017. Social History: Denies: smoking, alcohol use, drug use, other Review of Systems All Other Systems: negative except mentioned in HPI Physical Exam Vital Signs Date Time Temp Pulse Resp B/P (MAP) Pulse Ox O2 Delivery O2 Flow Rate FiO2 10/17/17 16:00 97.9 54 18 129/65 98 Room Air Sp02 EP Interpretation: reviewed, normal Labs Laboratory Tests Test 10/18/17 21:25 10/19/17 08:30 10/19/17 09:35 Urine Color Pale yellow Urine Appearance Clear Urine pH 6 (4.5-8.0) Urine Specific [place] 1.010 (1.005-1.035) Urine Protein Negative (NEGATIVE) Urine Glucose (UA) Negative (NEGATIVE) Urine Ketones 1+ (NEGATIVE) H Urine Occult Blood 2+ (NEGATIVE) H Urine Nitrite Negative (NEGATIVE) Urine Bilirubin Negative (NEGATIVE) Urine Urobilinogen Normal MG/DL (0.0-1.0) Urine Leukocyte Esterase Negative (NEGATIVE) Urine RBC 2-4 /HPF (0 - 2) H Urine WBC 0 /HPF (0 - 2) Urine Squamous Epithelial Cells Few /LPF (NONE/OCC) Urine Bacteria None /HPF (NONE) Urine Total Protein Pending Urine Albumin (%) Pending Urine Pnmtq-7-Puhvfhxxx (%) Pending Urine Lajfi-0-Mjazabhml (%) Pending Urine Beta-Globulin (%) Pending Urine Gamma Globulin (%) Pending Ur Protein Electrophoresis M-Сергей Pending Urine Protein Electrophoresis Intrp Pending Histoplasma Antigen Pending Sodium Level 139 MMOL/L (136-145) Potassium Level 3.9 MMOL/L (3.5-5.1) Chloride Level 105 MMOL/L (98-107) Carbon Dioxide Level 22 MMOL/L (21-32) Anion Gap 12 mmol/L (5-15) Blood Urea Nitrogen 6 mg/dL (7-18) L Creatinine 0.7 MG/DL (0.55-1.30) Estimat Glomerular Filtration Rate > 60 mL/min (>60) Glucose Level 124 MG/DL (74-106) H Calcium Level 8.6 MG/DL (8.5-10.1) Phosphorus Level 3.0 MG/DL (2.5-4.9) Magnesium Level 1.6 MG/DL (1.8-2.4) L Total Bilirubin 1.0 MG/DL (0.2-1.0) Aspartate Amino Transf (AST/SGOT) 22 U/L (15-37) Alanine Aminotransferase (ALT/SGPT) 15 U/L (12-78) Alkaline Phosphatase 54 U/L (46-116) C-Reactive Protein, Quantitative 2.5 mg/dL (0.00-0.90) H Total Protein 6.3 G/DL (6.4-8.2) L Albumin 3.1 G/DL (3.4-5.0) L Globulin 3.2 g/dL Albumin/Globulin Ratio 1.0 (1.0-2.7) Pending White Blood Count 6.3 K/UL (4.8-10.8) Red Blood Count 4.05 M/UL (4.20-5.40) L Hemoglobin 12.4 G/DL (12.0-16.0) Hematocrit 35.8 % (37.0-47.0) L Mean Corpuscular Volume 88 FL (80-99) Mean Corpuscular Hemoglobin 30.6 PG (27.0-31.0) Mean Corpuscular Hemoglobin Concent 34.6 G/DL (32.0-36.0) Red Cell Distribution Width 10.3 % (11.6-14.8) L Platelet Count 202 K/UL (150-450) Mean Platelet Volume 6.7 FL (6.5-10.1) Neutrophils (%) (Auto) 64.5 % (45.0-75.0) Lymphocytes (%) (Auto) 24.9 % (20.0-45.0) Monocytes (%) (Auto) 9.2 % (1.0-10.0) Eosinophils (%) (Auto) 0.2 % (0.0-3.0) Basophils (%) (Auto) 1.2 % (0.0-2.0) Erythrocyte Sedimentation Rate 31 MM/HR (0-30) H Total Protein (PEP) Pending Albumin (PEP) Pending Globulin (PEP) Pending Fiwqw-9-Irxfcafpy Pending Horlw-4-Ruiwsmnxz Pending Beta Globulins Pending Beta Gamma Globulin Pending PEP Abnormal Protein Bands Pending Protein Electrophoresis Interpret Pending Cryoglobulin Pending Cryoglobulin, Quant (Cryocrit) Pending Rheumatoid Factor Screen Pending Cyclic Citrullinated Peptide IgG Ab Pending Anti-Nuclear Antibody Screen Pending c-ANCA Titer Pending p-ANCA Titer Pending Complement C3 Pending Complement C4 Pending Rapid Plasma Reagin Pending Hepatitis A IgM Antibody Pending Hepatitis B Surface Antigen Pending Hepatitis B Surface Antibody Pending Hepatitis B Core Total Antibody Pending Hepatitis B Core IgM Antibody Pending Hepatitis C Antibody Pending Histoplasma Mycelial Antibody Pending Histoplasma Antibody w Mycelial Ag Pending Histoplasma Antibody with Yeast Ag Pending HIV-1 RNA (PCR) log10 Value Pending HIV-1 RNA Ultraquantitative (PCR) Pending HIV (1&2) Antibody Rapid Negative (NEGATIVE) General Appearance: well appearing, no apparent distress, alert, thin Head: normocephalic EENT: PERRL/EOMI, normal ENT inspection Neck: supple Respiratory: normal breath sounds, no respiratory distress Cardiovascular: normal rate Gastrointestinal: normal inspection, non tender, soft, normal bowel sounds, non -distended Rectal: deferred Genitourinary: no CVA tenderness Musculoskeletal: normal inspection, back normal Neurologic: normal inspection, alert, oriented x3, responsive Psychiatric: normal inspection, judgement/insight normal, memory normal Skin: normal inspection, normal color, no rash, warm/dry, palpation normal, well hydrated Lymphatic: normal inspection, no adenopathy Current Medications Current Medications Medications (Trade) Dose Ordered Sig/Riaz Route PRN Reason Start Time Stop Time Status Last Admin Dose Admin Acetaminophen (Tylenol) 650 mg Q6H PRN ORAL Mild Pain/Temp > 100.5 10/18/17 11:00 11/16/17 10:59 Ceftriaxone Sodium 1 gm/ Dextrose 55 ml @ 110 mls/hr Q24H IVPB 10/19/17 14:00 10/26/17 13:59 Dextrose/ Electrolytes 1,000 ml @ 100 mls/hr Q10H IV 10/18/17 16:00 11/16/17 15:59 10/19/17 12:12 Dronabinol (Marinol) 2.5 mg TID ORAL 10/18/17 18:00 11/17/17 17:59 10/19/17 12:12 Heparin Sodium (Porcine) (Heparin 5000 units/ml) 5,000 units EVERY 12 HOURS SUBQ 10/18/17 11:00 11/16/17 10:59 Metronidazole 100 ml @ 100 mls/hr Q8HR IVPB 10/19/17 14:00 10/26/17 13:59 Mirtazapine (Remeron) 15 mg BEDTIME ORAL 10/18/17 21:00 11/17/17 20:59 Morphine Sulfate (Morphine Sulfate) 2 mg Q6H PRN IVP Severe Pain (Pain Scale 7-10) 10/18/17 11:00 10/24/17 10:59 Ondansetron HCl (Zofran) 4 mg Q4H PRN IVP Nausea & Vomiting 10/18/17 11:00 11/16/17 10:59 Vitamin A/Vitamin D (A & D Oint) 1 applic EVERY 12 HOURS TOPIC 10/18/17 21:00 11/17/17 20:59 10/18/17 20:38 GI: Plan Problems: (1) Colitis (2) Severe protein-calorie malnutrition (3) Failure to thrive in adult (4) Abdominal pain (5) Chronic abdominal pain (6) History of food intolerance Plan CT AP reviewed >> possible colitis refused colonoscopy FLD, adv as tolerated calorie count x 48 hours add marinol colace ppi IV IV hydration + electrolyte correction collect stool studies, cdiff if patient has diarrhea fu labs, CEA fu pysc recs Discussed with Dr. Bradford. Thank you for this patient referral, we will follow. MALICK BRADFORD 10/20/17 0751: History of Present Illness Present Illness Home Meds Reported Medications No Known Medications* (NKM - No Known Medications*) ., 0 ., 0 Refills 10/17/17 Allergies: Coded Allergies: AMOXICILLIN (Verified Adverse Reaction, Unknown, 10/17/17) Patient reports she fainted a couple years ago when she took amoxicillin GI: Plan Plan The patient was seen and examined at bedside and all new and available data was reviewed in the patients chart. I agree with the above findings, impression and plan. (Patient seen earlier today. Signature stamp does not reflect patient encounter time.). - [facility] Darren N.PMichael Oct 19, 2017 13:15 MALICK BRADFORD Oct 20, 2017 07:51
--- NOTE | 2017-10-19 13:34 | Pulmonology Progress Note ---
Assessment/Plan Problems: (1) Bradycardia (2) Severe protein-calorie malnutrition (3) Abdominal pain (4) History of food intolerance (5) Failure to thrive in adult Assessment/Plan rule out afb in stool symptomatic treatment cardiology to see echo cardiogram d/w with ID keep in teli Subjective ROS Limited/Unobtainable: No Interval Events: doesn't want to eat Allergies: Coded Allergies: AMOXICILLIN (Verified Adverse Reaction, Unknown, 10/17/17) Patient reports she fainted a couple years ago when she took amoxicillin Objective Last 24 Hour Vital Signs Date Time Temp Pulse Resp B/P (MAP) Pulse Ox O2 Delivery O2 Flow Rate FiO2 10/19/17 12:00 96.9 42 18 141/71 100 Room Air 10/19/17 08:00 44 10/19/17 08:00 96.9 38 18 147/57 96 Room Air 10/19/17 04:25 Room Air 10/19/17 04:25 96.9 44 20 166/61 100 Room Air 10/19/17 04:00 40 10/19/17 00:47 97.0 45 20 120/56 98 Room Air 10/19/17 00:47 Room Air 10/19/17 00:00 40 10/18/17 20:43 97.0 128 22 98/53 100 Room Air 10/18/17 20:43 Room Air 10/18/17 20:40 97.0 128 22 98/53 100 Room Air 10/18/17 20:00 42 10/18/17 16:00 97.2 42 20 151/69 97 Room Air 10/18/17 16:00 42 Intake and Output 10/18/17 10/19/17 19:00 07:00 Intake Total 27.5 ml 1216.2 ml Balance 27.5 ml 1216.2 ml Intake IV Total 27.5 ml 1216.2 ml # Voids 4 5 General Appearance: cachetic HEENT: normocephalic, atraumatic Respiratory/Chest: chest wall non-tender, lungs clear Breasts: no masses Cardiovascular: normal peripheral pulses Abdomen: normal bowel sounds, soft, non tender Genitourinary: normal external genitalia Skin: no rash Laboratory Tests 10/18/17 21:25: Urine Color Pale yellow, Urine Appearance Clear, Urine pH 6, Urine Specific [place] 1.010, Urine Protein Negative, Urine Glucose (UA) Negative, Urine Ketones 1+H, Urine Occult Blood 2+H, Urine Nitrite Negative, Urine Bilirubin Negative, Urine Urobilinogen Normal, Urine Leukocyte Esterase Negative, Urine RBC 2-4H, Urine WBC 0, Urine Squamous Epithelial Cells Few, Urine Bacteria None , Urine Total Protein [Pending], Urine Albumin (%) [Pending], Urine Alpha-1- Globulins (%) [Pending], Urine Ncwuh-6-Ommwoiotu (%) [Pending], Urine Beta- Globulin (%) [Pending], Urine Gamma Globulin (%) [Pending], Ur Protein Electrophoresis M-Сергей [Pending], Urine Protein Electrophoresis Intrp [Pending] , Histoplasma Antigen [Pending] 10/19/17 08:30: Sodium Level 139, Potassium Level 3.9, Chloride Level 105, Carbon Dioxide Level 22, Anion Gap 12, Blood Urea Nitrogen 6L, Creatinine 0.7, Estimat Glomerular Filtration Rate > 60, Glucose Level 124H, Calcium Level 8.6, Phosphorus Level 3.0, Magnesium Level 1.6L, Total Bilirubin 1.0, Aspartate Amino Transf (AST/SGOT ) 22, Alanine Aminotransferase (ALT/SGPT) 15, Alkaline Phosphatase 54, C- Reactive Protein, Quantitative 2.5H, Total Protein 6.3L, Albumin 3.1L, Globulin 3.2, Albumin/Globulin Ratio 1.0 10/19/17 09:35: Albumin/Globulin Ratio [Pending], White Blood Count 6.3, Red Blood Count 4.05L, Hemoglobin 12.4, Hematocrit 35.8L, Mean Corpuscular Volume 88, Mean Corpuscular Hemoglobin 30.6, Mean Corpuscular Hemoglobin Concent 34.6, Red Cell Distribution Width 10.3L, Platelet Count 202, Mean Platelet Volume 6.7, Neutrophils (%) (Auto) 64.5, Lymphocytes (%) (Auto) 24.9, Monocytes (%) (Auto) 9.2, Eosinophils (%) (Auto) 0.2, Basophils (%) (Auto) 1.2, Erythrocyte Sedimentation Rate 31H, Total Protein (PEP) [Pending], Albumin (PEP) [Pending], Globulin (PEP) [Pending], Hzxcn-8-Luwaptycm [Pending], Fxfbb-8-Ithpgtysk [ Pending], Beta Globulins [Pending], Beta Gamma Globulin [Pending], PEP Abnormal Protein Bands [Pending], Protein Electrophoresis Interpret [Pending], Cryoglobulin [Pending], Cryoglobulin, Quant (Cryocrit) [Pending], Rheumatoid Factor Screen [Pending], Cyclic Citrullinated Peptide IgG Ab [Pending], Anti- Nuclear Antibody Screen [Pending], c-ANCA Titer [Pending], p-ANCA Titer [Pending ], Complement C3 [Pending], Complement C4 [Pending], Rapid Plasma Reagin [ Pending], Hepatitis A IgM Antibody [Pending], Hepatitis B Surface Antigen [ Pending], Hepatitis B Surface Antibody [Pending], Hepatitis B Core Total Antibody [Pending], Hepatitis B Core IgM Antibody [Pending], Hepatitis C Antibody [Pending], Histoplasma Mycelial Antibody [Pending], Histoplasma Antibody w Mycelial Ag [Pending], Histoplasma Antibody with Yeast Ag [Pending], HIV-1 RNA (PCR) log10 Value [Pending], HIV-1 RNA Ultraquantitative (PCR) [ Pending], HIV (1&2) Antibody Rapid Negative Current Medications Medications (Trade) Dose Ordered Sig/Riaz Route PRN Reason Start Time Stop Time Status Last Admin Dose Admin Acetaminophen (Tylenol) 650 mg Q6H PRN ORAL Mild Pain/Temp > 100.5 10/18/17 11:00 11/16/17 10:59 Ceftriaxone Sodium 1 gm/ Dextrose 55 ml @ 110 mls/hr Q24H IVPB 10/19/17 14:00 10/26/17 13:59 Dextrose/ Electrolytes 1,000 ml @ 100 mls/hr Q10H IV 10/18/17 16:00 11/16/17 15:59 10/19/17 12:12 Dronabinol (Marinol) 2.5 mg TID ORAL 10/18/17 18:00 11/17/17 17:59 10/19/17 12:12 Heparin Sodium (Porcine) (Heparin 5000 units/ml) 5,000 units EVERY 12 HOURS SUBQ 10/18/17 11:00 11/16/17 10:59 Magnesium Sulfate 100 ml @ 100 mls/hr Q1H IVPB 10/19/17 13:30 10/19/17 15:29 Metronidazole 100 ml @ 100 mls/hr Q8HR IVPB 10/19/17 14:00 10/26/17 13:59 Mirtazapine (Remeron) 15 mg BEDTIME ORAL 10/18/17 21:00 11/17/17 20:59 Morphine Sulfate (Morphine Sulfate) 2 mg Q6H PRN IVP Severe Pain (Pain Scale 7-10) 10/18/17 11:00 10/24/17 10:59 Ondansetron HCl (Zofran) 4 mg Q4H PRN IVP Nausea & Vomiting 10/18/17 11:00 11/16/17 10:59 Vitamin A/Vitamin D (A & D Oint) 1 applic EVERY 12 HOURS TOPIC 10/18/17 21:00 11/17/17 20:59 10/18/17 20:38 MYESHA OVERTON Oct 19, 2017 13:34
--- NOTE | 2017-10-19 13:45 | Internal Med Progress Note ---
Subjective Date of Service: Oct 19, 2017 Physician Name Stephen Herrmann Attending Physician Wang Mendoza MD Current Medications Medications (Trade) Dose Ordered Sig/Riaz Route PRN Reason Start Time Stop Time Status Last Admin Dose Admin Acetaminophen (Tylenol) 650 mg Q6H PRN ORAL Mild Pain/Temp > 100.5 10/18/17 11:00 11/16/17 10:59 Ceftriaxone Sodium 1 gm/ Dextrose 55 ml @ 110 mls/hr Q24H IVPB 10/19/17 14:00 10/26/17 13:59 Dextrose/ Electrolytes 1,000 ml @ 100 mls/hr Q10H IV 10/18/17 16:00 11/16/17 15:59 10/19/17 12:12 Dronabinol (Marinol) 2.5 mg TID ORAL 10/18/17 18:00 11/17/17 17:59 10/19/17 12:12 Heparin Sodium (Porcine) (Heparin 5000 units/ml) 5,000 units EVERY 12 HOURS SUBQ 10/18/17 11:00 11/16/17 10:59 Magnesium Sulfate 100 ml @ 100 mls/hr Q1H IVPB 10/19/17 13:30 10/19/17 15:29 Metronidazole 100 ml @ 100 mls/hr Q8HR IVPB 10/19/17 14:00 10/26/17 13:59 Mirtazapine (Remeron) 15 mg BEDTIME ORAL 10/18/17 21:00 11/17/17 20:59 Morphine Sulfate (Morphine Sulfate) 2 mg Q6H PRN IVP Severe Pain (Pain Scale 7-10) 10/18/17 11:00 10/24/17 10:59 Ondansetron HCl (Zofran) 4 mg Q4H PRN IVP Nausea & Vomiting 10/18/17 11:00 11/16/17 10:59 Vitamin A/Vitamin D (A & D Oint) 1 applic EVERY 12 HOURS TOPIC 10/18/17 21:00 11/17/17 20:59 10/18/17 20:38 Allergies: Coded Allergies: AMOXICILLIN (Verified Adverse Reaction, Unknown, 10/17/17) Patient reports she fainted a couple years ago when she took amoxicillin ROS Limited/Unobtainable: No Constitutional: Reports: no symptoms HEENT: Reports: no symptoms Cardiovascular: Reports: no symptoms Respiratory: Reports: no symptoms Gastrointestinal/Abdominal: Reports: abdominal pain Genitourinary: Reports: no symptoms Neurologic/Psychiatric: Reports: no symptoms Subjective 67 YO F admitted with abdominal pain. Now colitis. Cover for Int Med-Dr Mendoza. Objective Last Vital Signs Date Time Temp Pulse Resp B/P (MAP) Pulse Ox O2 Delivery O2 Flow Rate FiO2 10/19/17 12:00 96.9 42 18 141/71 100 Room Air General Appearance: WD/WN, no apparent distress, mild distress EENT: PERRL/EOMI, normal ENT inspection, TMs normal Neck: non-tender, normal alignment, supple Cardiovascular: normal peripheral pulses, normal rate, regular rhythm, no gallop/murmur, no JVD Respiratory/Chest: chest wall non-tender, lungs clear, normal breath sounds, no respiratory distress, no accessory muscle use Abdomen: soft, no organomegaly, no mass, decreased bowel sounds, guarding, tender Extremities: normal range of motion, non-tender 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: 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 skills officer II-XII grossly normal, no motor/sensory deficits Skin: normal pigmentation, warm/dry Laboratory Tests Test 10/18/17 21:25 10/19/17 08:30 10/19/17 09:35 Urine Color Pale yellow Urine Appearance Clear Urine pH 6 (4.5-8.0) Urine Specific [place] 1.010 (1.005-1.035) Urine Protein Negative (NEGATIVE) Urine Glucose (UA) Negative (NEGATIVE) Urine Ketones 1+ (NEGATIVE) H Urine Occult Blood 2+ (NEGATIVE) H Urine Nitrite Negative (NEGATIVE) Urine Bilirubin Negative (NEGATIVE) Urine Urobilinogen Normal MG/DL (0.0-1.0) Urine Leukocyte Esterase Negative (NEGATIVE) Urine RBC 2-4 /HPF (0 - 2) H Urine WBC 0 /HPF (0 - 2) Urine Squamous Epithelial Cells Few /LPF (NONE/OCC) Urine Bacteria None /HPF (NONE) Urine Total Protein Pending Urine Albumin (%) Pending Urine Covkt-1-Ejqeehezx (%) Pending Urine Jgzwr-4-Gitwyjkil (%) Pending Urine Beta-Globulin (%) Pending Urine Gamma Globulin (%) Pending Ur Protein Electrophoresis M-Сергей Pending Urine Protein Electrophoresis Intrp Pending Histoplasma Antigen Pending Sodium Level 139 MMOL/L (136-145) Potassium Level 3.9 MMOL/L (3.5-5.1) Chloride Level 105 MMOL/L (98-107) Carbon Dioxide Level 22 MMOL/L (21-32) Anion Gap 12 mmol/L (5-15) Blood Urea Nitrogen 6 mg/dL (7-18) L Creatinine 0.7 MG/DL (0.55-1.30) Estimat Glomerular Filtration Rate > 60 mL/min (>60) Glucose Level 124 MG/DL (74-106) H Calcium Level 8.6 MG/DL (8.5-10.1) Phosphorus Level 3.0 MG/DL (2.5-4.9) Magnesium Level 1.6 MG/DL (1.8-2.4) L Total Bilirubin 1.0 MG/DL (0.2-1.0) Aspartate Amino Transf (AST/SGOT) 22 U/L (15-37) Alanine Aminotransferase (ALT/SGPT) 15 U/L (12-78) Alkaline Phosphatase 54 U/L (46-116) C-Reactive Protein, Quantitative 2.5 mg/dL (0.00-0.90) H Total Protein 6.3 G/DL (6.4-8.2) L Albumin 3.1 G/DL (3.4-5.0) L Globulin 3.2 g/dL Albumin/Globulin Ratio 1.0 (1.0-2.7) Pending White Blood Count 6.3 K/UL (4.8-10.8) Red Blood Count 4.05 M/UL (4.20-5.40) L Hemoglobin 12.4 G/DL (12.0-16.0) Hematocrit 35.8 % (37.0-47.0) L Mean Corpuscular Volume 88 FL (80-99) Mean Corpuscular Hemoglobin 30.6 PG (27.0-31.0) Mean Corpuscular Hemoglobin Concent 34.6 G/DL (32.0-36.0) Red Cell Distribution Width 10.3 % (11.6-14.8) L Platelet Count 202 K/UL (150-450) Mean Platelet Volume 6.7 FL (6.5-10.1) Neutrophils (%) (Auto) 64.5 % (45.0-75.0) Lymphocytes (%) (Auto) 24.9 % (20.0-45.0) Monocytes (%) (Auto) 9.2 % (1.0-10.0) Eosinophils (%) (Auto) 0.2 % (0.0-3.0) Basophils (%) (Auto) 1.2 % (0.0-2.0) Erythrocyte Sedimentation Rate 31 MM/HR (0-30) H Total Protein (PEP) Pending Albumin (PEP) Pending Globulin (PEP) Pending Lzhkt-0-Pnqvttjfg Pending Gqout-3-Iqczhgcpv Pending Beta Globulins Pending Beta Gamma Globulin Pending PEP Abnormal Protein Bands Pending Protein Electrophoresis Interpret Pending Cryoglobulin Pending Cryoglobulin, Quant (Cryocrit) Pending Rheumatoid Factor Screen Pending Cyclic Citrullinated Peptide IgG Ab Pending Anti-Nuclear Antibody Screen Pending c-ANCA Titer Pending p-ANCA Titer Pending Complement C3 Pending Complement C4 Pending Rapid Plasma Reagin Pending Hepatitis A IgM Antibody Pending Hepatitis B Surface Antigen Pending Hepatitis B Surface Antibody Pending Hepatitis B Core Total Antibody Pending Hepatitis B Core IgM Antibody Pending Hepatitis C Antibody Pending Histoplasma Mycelial Antibody Pending Histoplasma Antibody w Mycelial Ag Pending Histoplasma Antibody with Yeast Ag Pending HIV-1 RNA (PCR) log10 Value Pending HIV-1 RNA Ultraquantitative (PCR) Pending HIV (1&2) Antibody Rapid Negative (NEGATIVE) Intake and Output 10/18/17 10/19/17 19:00 07:00 Intake Total 27.5 ml 1216.2 ml Balance 27.5 ml 1216.2 ml Intake IV Total 27.5 ml 1216.2 ml # Voids 4 5 Assessment/Plan Problem List: (1) Weight loss (2) Left lower quadrant pain Assessment & Plan: Continue morphine (3) Failure to thrive in adult (4) Colitis Assessment & Plan: Continue zosyn and flagyl. See GI note. (5) Anxiety Assessment & Plan: See psychiatry note. STEPHEN HERRMANN Oct 19, 2017 13:45
[2017-10-19] MEDS ORDERED: Tubing IV Secondary IV ONE (14:57)
[2017-10-19] MEDS: cefTRIAXone 1 GM in D5W 55 ML IVPB SCH (15:22)
[2017-10-19 16:00] VITALS: BP 133/55
--- NOTE | 2017-10-19 17:08 | General Surgery Progress Note ---
General Surgery-Progress Note Subjective Additional Comments patient stable. states that she had some soup today but still noted some pain after. states she is currently in pain as well but does not exhibit signs of being in discomfort. no n/v/f/c states she feels constipated. psych note reviewed. Objective Last 24 Hour Vital Signs Date Time Temp Pulse Resp B/P (MAP) Pulse Ox O2 Delivery O2 Flow Rate FiO2 10/19/17 12:00 96.9 42 18 141/71 100 Room Air 10/19/17 08:00 44 10/19/17 08:00 96.9 38 18 147/57 96 Room Air 10/19/17 04:25 Room Air 10/19/17 04:25 96.9 44 20 166/61 100 Room Air 10/19/17 04:00 40 10/19/17 00:47 97.0 45 20 120/56 98 Room Air 10/19/17 00:47 Room Air 10/19/17 00:00 40 10/18/17 20:43 97.0 128 22 98/53 100 Room Air 10/18/17 20:43 Room Air 10/18/17 20:40 97.0 128 22 98/53 100 Room Air 10/18/17 20:00 42 I&O Intake and Output 10/18/17 10/19/17 19:00 07:00 Intake Total 27.5 ml 1216.2 ml Balance 27.5 ml 1216.2 ml Intake IV Total 27.5 ml 1216.2 ml # Voids 4 5 Cardiovascular: RSR Respiratory: clear Abdomen: soft, flat, non-tender, present bowel sounds Extremities: no tenderness Laboratory Tests Test 10/18/17 21:25 10/19/17 08:30 10/19/17 09:35 Urine Color Pale yellow Urine Appearance Clear Urine pH 6 (4.5-8.0) Urine Specific [place] 1.010 (1.005-1.035) Urine Protein Negative (NEGATIVE) Urine Glucose (UA) Negative (NEGATIVE) Urine Ketones 1+ (NEGATIVE) H Urine Occult Blood 2+ (NEGATIVE) H Urine Nitrite Negative (NEGATIVE) Urine Bilirubin Negative (NEGATIVE) Urine Urobilinogen Normal MG/DL (0.0-1.0) Urine Leukocyte Esterase Negative (NEGATIVE) Urine RBC 2-4 /HPF (0 - 2) H Urine WBC 0 /HPF (0 - 2) Urine Squamous Epithelial Cells Few /LPF (NONE/OCC) Urine Bacteria None /HPF (NONE) Urine Total Protein Pending Urine Albumin (%) Pending Urine Neoad-9-Ehxbfgdlq (%) Pending Urine Qrwbo-8-Brlrbltwj (%) Pending Urine Beta-Globulin (%) Pending Urine Gamma Globulin (%) Pending Ur Protein Electrophoresis M-Сергей Pending Urine Protein Electrophoresis Intrp Pending Histoplasma Antigen Pending Sodium Level 139 MMOL/L (136-145) Potassium Level 3.9 MMOL/L (3.5-5.1) Chloride Level 105 MMOL/L (98-107) Carbon Dioxide Level 22 MMOL/L (21-32) Anion Gap 12 mmol/L (5-15) Blood Urea Nitrogen 6 mg/dL (7-18) L Creatinine 0.7 MG/DL (0.55-1.30) Estimat Glomerular Filtration Rate > 60 mL/min (>60) Glucose Level 124 MG/DL (74-106) H Calcium Level 8.6 MG/DL (8.5-10.1) Phosphorus Level 3.0 MG/DL (2.5-4.9) Magnesium Level 1.6 MG/DL (1.8-2.4) L Total Bilirubin 1.0 MG/DL (0.2-1.0) Aspartate Amino Transf (AST/SGOT) 22 U/L (15-37) Alanine Aminotransferase (ALT/SGPT) 15 U/L (12-78) Alkaline Phosphatase 54 U/L (46-116) C-Reactive Protein, Quantitative 2.5 mg/dL (0.00-0.90) H Total Protein 6.3 G/DL (6.4-8.2) L Albumin 3.1 G/DL (3.4-5.0) L Globulin 3.2 g/dL Albumin/Globulin Ratio 1.0 (1.0-2.7) Pending White Blood Count 6.3 K/UL (4.8-10.8) Red Blood Count 4.05 M/UL (4.20-5.40) L Hemoglobin 12.4 G/DL (12.0-16.0) Hematocrit 35.8 % (37.0-47.0) L Mean Corpuscular Volume 88 FL (80-99) Mean Corpuscular Hemoglobin 30.6 PG (27.0-31.0) Mean Corpuscular Hemoglobin Concent 34.6 G/DL (32.0-36.0) Red Cell Distribution Width 10.3 % (11.6-14.8) L Platelet Count 202 K/UL (150-450) Mean Platelet Volume 6.7 FL (6.5-10.1) Neutrophils (%) (Auto) 64.5 % (45.0-75.0) Lymphocytes (%) (Auto) 24.9 % (20.0-45.0) Monocytes (%) (Auto) 9.2 % (1.0-10.0) Eosinophils (%) (Auto) 0.2 % (0.0-3.0) Basophils (%) (Auto) 1.2 % (0.0-2.0) Erythrocyte Sedimentation Rate 31 MM/HR (0-30) H Total Protein (PEP) Pending Albumin (PEP) Pending Globulin (PEP) Pending Jfduz-3-Cibxcpvoz Pending Logis-2-Hfgszrshc Pending Beta Globulins Pending Beta Gamma Globulin Pending PEP Abnormal Protein Bands Pending Protein Electrophoresis Interpret Pending Cryoglobulin Pending Cryoglobulin, Quant (Cryocrit) Pending Rheumatoid Factor Screen Pending Cyclic Citrullinated Peptide IgG Ab Pending Anti-Nuclear Antibody Screen Pending c-ANCA Titer Pending p-ANCA Titer Pending Complement C3 Pending Complement C4 Pending Rapid Plasma Reagin Pending Hepatitis A IgM Antibody Pending Hepatitis B Surface Antigen Pending Hepatitis B Surface Antibody Pending Hepatitis B Core Total Antibody Pending Hepatitis B Core IgM Antibody Pending Hepatitis C Antibody Pending Histoplasma Mycelial Antibody Pending Histoplasma Antibody w Mycelial Ag Pending Histoplasma Antibody with Yeast Ag Pending HIV-1 RNA (PCR) log10 Value Pending HIV-1 RNA Ultraquantitative (PCR) Pending HIV (1&2) Antibody Rapid Negative (NEGATIVE) Plan Problems: (1) Chronic abdominal pain Assessment & Plan: 67F with chronic abdominal pain, po intolerance, failure to thrive, with acute episode of abdominal pain. has long history of po intolerance and abdominal pain. has lost 40+ pounds over the last year because of this. states she was at [facility] with extensive work up but does not recall what or treatment. Currently pain improved but she is not willing to attempt oral intake. transferred from [place] for further care. leukocytosis resolved. bradycardic. no pain but serious food aversion. has emotional and mental issues that are apparent when she is interviewed. she refuses interventions when offered. she will agree to some (CT scan, IV fluids , now IV abx) but refuses to eat, take oral meds, feeds, etc. Repeat CT reviewed. possible colitis but after reviewing CT and physical exam clinically does not have colitis. no signs of vascular abnormality on CT as arteries are patent. psych consult reviewed. pending [facility] records. -Requested records from [facility]. pending delivery -okay for diet if patient will eat -IV fluids -IV Abx -patient refuses most interventions but if continues to have food aversion may consider feeding tube. will discuss with GI. thank you for this consultation. Siva Avalos Oct 19, 2017 17:08
[2017-10-19 20:25] VITALS: BP 117/60
[2017-10-20 00:25] VITALS: BP 109/55
[2017-10-20 04:19] VITALS: BP 147/80
[2017-10-20 07:35] VITALS: BP 141/60
[2017-10-20] MEDS: Heparin 5000 units/ml inj SUBQ SCH ×2 (08:12→21:00)
[2017-10-20] MEDS: Dronabinol 2.5mg Cap ORAL SCH ×6 (08:13→18:11)
[2017-10-20] MEDS: Vitamin A&D Oint 2oz Tube TOPIC SCH ×2 (09:00→21:50)
[2017-10-20 11:35] LABS: BASOPHILS % (AUTO) 1.5 % (0.0-2.0); HEMATOCRIT 40.2 % (37.0-47.0); HEMOGLOBIN 14.1 G/DL (12.0-16.0); LYMPHOCYTES % (AUTO) 34.6 % (20.0-45.0); MEAN CORPUSCULAR VOLUME 91 FL (80-99); MONOCYTES % (AUTO) 8.7 % (1.0-10.0); NEUTROPHILS % (AUTO) 54.2 % (45.0-75.0); PLATELET COUNT 229 K/UL (150-450); RED BLOOD COUNT 4.44 M/UL (4.20-5.40); WHITE BLOOD COUNT 4.2 K/UL (4.8-10.8)
[2017-10-20 12:00] VITALS: BP 147/63
[2017-10-20 12:03] LABS: ANION GAP 9 mmol/L (5-15); BLOOD UREA NITROGEN 3 mg/dL (7-18); CALCIUM 8.7 MG/DL (8.5-10.1); CARBON DIOXIDE 26 MMOL/L (21-32); CHLORIDE 109 MMOL/L (98-107); CREATININE 0.8 MG/DL (0.55-1.30); POTASSIUM 3.2 MMOL/L (3.5-5.1); SODIUM 144 MMOL/L (136-145)
[2017-10-20] MEDS: cefTRIAXone 1 GM in D5W 55 ML IVPB SCH (12:57)
--- NOTE | 2017-10-20 13:09 | GI Progress Note ---
Assessment/Plan Problems: (1) Anxiety ICD Codes: F41.9 - Anxiety disorder, unspecified SNOMED: 69119974 (2) Weight loss ICD Codes: R63.4 - Abnormal weight loss SNOMED: 76109091, 308854827 (3) Colitis ICD Codes: K52.9 - Noninfective gastroenteritis and colitis, unspecified SNOMED: 44123888 (4) Severe protein-calorie malnutrition ICD Codes: E43 - Unspecified severe protein-calorie malnutrition SNOMED: 589642927 (5) History of food intolerance ICD Codes: Z87.19 - Personal history of other diseases of the digestive system SNOMED: 030548271 (6) Failure to thrive in adult ICD Codes: R62.7 - Adult failure to thrive SNOMED: 718962002 (7) Chronic abdominal pain ICD Codes: R10.9 - Unspecified abdominal pain; G89.29 - Other chronic pain SNOMED: 301657576 Status: unchanged Status Narrative Discussed with Dr. Bradford. Assessment/Plan CT AP reviewed >> possible colitis refused colonoscopy refusing meds FLD, adv as tolerated calorie count x 48 hours add marinol colace ppi IV IV hydration + electrolyte correction collect stool studies, cdiff if patient has diarrhea fu labs, CEA fu pysc recs Subjective Gastrointestinal/Abdominal: Reports: abdominal pain, difficulty swallowing, nausea, poor appetite, poor fluid intake Objective Last 24 Hour Vital Signs Date Time Temp Pulse Resp B/P (MAP) Pulse Ox O2 Delivery O2 Flow Rate FiO2 10/20/17 07:35 97.5 41 18 141/60 96 Room Air 10/20/17 07:25 39 10/20/17 04:19 98.0 46 18 147/80 96 Room Air 10/20/17 04:00 53 10/20/17 00:25 98.0 49 18 109/55 99 10/20/17 00:00 44 10/19/17 20:25 97.3 42 18 117/60 96 10/19/17 20:00 50 10/19/17 16:00 46 10/19/17 16:00 96.4 45 18 133/55 99 Room Air Intake and Output 10/19/17 10/20/17 19:00 07:00 Intake Total 120 ml 900 ml Output Total 500 ml 900 ml Balance -380 ml 0 ml Intake Oral 120 ml IV Total 0 ml 900 ml Output Urine Total 500 ml 900 ml # Voids 3 Laboratory Tests Test 10/20/17 10:15 White Blood Count 4.2 K/UL (4.8-10.8) L Red Blood Count 4.44 M/UL (4.20-5.40) Hemoglobin 14.1 G/DL (12.0-16.0) Hematocrit 40.2 % (37.0-47.0) Mean Corpuscular Volume 91 FL (80-99) Mean Corpuscular Hemoglobin 31.8 PG (27.0-31.0) H Mean Corpuscular Hemoglobin Concent 35.1 G/DL (32.0-36.0) Red Cell Distribution Width 11.0 % (11.6-14.8) L Platelet Count 229 K/UL (150-450) Mean Platelet Volume 6.5 FL (6.5-10.1) Neutrophils (%) (Auto) 54.2 % (45.0-75.0) Lymphocytes (%) (Auto) 34.6 % (20.0-45.0) Monocytes (%) (Auto) 8.7 % (1.0-10.0) Eosinophils (%) (Auto) 1.0 % (0.0-3.0) Basophils (%) (Auto) 1.5 % (0.0-2.0) Sodium Level 144 MMOL/L (136-145) Potassium Level 3.2 MMOL/L (3.5-5.1) L Chloride Level 109 MMOL/L (98-107) H Carbon Dioxide Level 26 MMOL/L (21-32) Anion Gap 9 mmol/L (5-15) Blood Urea Nitrogen 3 mg/dL (7-18) L Creatinine 0.8 MG/DL (0.55-1.30) Estimat Glomerular Filtration Rate > 60 mL/min (>60) Glucose Level 118 MG/DL (74-106) H Calcium Level 8.7 MG/DL (8.5-10.1) Magnesium Level 2.0 MG/DL (1.8-2.4) Height (Feet): 5 Weight (Pounds): 74 General Appearance: WD/WN, no apparent distress, alert, thin Cardiovascular: normal rate Respiratory/Chest: normal breath sounds, no respiratory distress Abdominal Exam: normal bowel sounds, non tender, soft Extremities: non-tender Goncalves,Samra Darren N.P. Oct 20, 2017 13:09
--- NOTE | 2017-10-20 15:47 | Infectious Diseases Prog Note ---
Assessment/Plan Assessment/Plan Assessment: Acute on chronic post-pandrial abd pain- unclear etiology--?acute superimposed colitis per CT findings. DDx of Etiology of chronic abd pain is extensive and includes infectious, auto-immune (connective tissue disorders, vasculitis such as Polyarteritis nodosa), inflammatory and psychogenic/psicosomatic. As far of infectious process r/o HIV, mycobacterial, histoplasmosis and parasitic causes. Dry throat and difficulty swallowing also raises suspicion of auto-immune process/connective tissue disorder such as Scleroderma. -Patient had extensive w/u at [facility] (awaiting records). She is very anxious and exhibits dependency. Suspicion for psychosomatic process although evaluating for organic etiologies. -CT abd/p w/ : Apparent mild thickening of the wall of the descending colon not optimally evaluated on this study. Please correlate for colitis.Mild free fluid within the pelvis. Suggestion of fibroid uterus. Atherosclerotic vascular disease -non contrast CT (@[facility])- jejunal wall thickening -CRP midly elevated at 4.8, ESR 31 -neg: HIV 1/2 ab (rapid test), u/a, RPR, hep panel, RF Failure to thrive Leukocytosis, resolved -afebrile s/p salpingo-oopherectomy for bening mass Plan: -Continue empiric Ceftriaxone and Flagyl abx d#4/5 for possible acute superimposed colitis -10/19 SP Zosyn #3 -f/u HIV VL, Qtb gold, histoplasma ag urine and ab, ANCA/ANCA, C3/C3, CCP, UPEP/SPEP, ESR, o+p x3, giardia/cyclospora/isospora/microsporidum stool -f/u cx -Monitor CBC/BMP, temperatures -surgery following -GI f/u -awaiting [facility] records Thank you for this consultation. Will continue to follow along with you. Discussed with RN and at bedside Subjective Allergies: Coded Allergies: AMOXICILLIN (Verified Adverse Reaction, Unknown, 10/17/17) Patient reports she fainted a couple years ago when she took amoxicillin Subjective afebrile mild leukopenia awaiting [facility] records Objective Vital Signs Last 24 Hour Vital Signs Date Time Temp Pulse Resp B/P (MAP) Pulse Ox O2 Delivery O2 Flow Rate FiO2 10/20/17 12:00 97.2 46 18 147/63 99 Room Air 10/20/17 11:44 44 1/11/18 07:35 97.5 41 18 141/60 96 Room Air 10/20/17 07:25 39 10/20/17 04:19 98.0 46 18 147/80 96 Room Air 10/20/17 04:00 53 10/20/17 00:25 98.0 49 18 109/55 99 10/20/17 00:00 44 10/19/17 20:25 97.3 42 18 117/60 96 10/19/17 20:00 50 10/19/17 16:00 46 10/19/17 16:00 96.4 45 18 133/55 99 Room Air Height (Feet): 5 Weight (Pounds): 74 Objective General Appearance: no apparent distress, alert, cachetic Lines, tubes and drains: peripheral HEENT: normocephalic, PERRL, other - dry, no oral lesions Neck: supple, normal inspection Respiratory/Chest: lungs clear, normal breath sounds, no respiratory distress, no accessory muscle use Cardiovascular/Chest: normal peripheral pulses, regular rhythm Abdomen: decreased bowel sounds, diffuse abd tenderness (however patient pressed her abdomen deeply and did not seemed to show pain or discomfort), soft , no organomegaly, no mass Extremities: normal inspection, no swollen,erythematous or tender joints Skin Exam: warm/dry, no rash Neurologic: alert, oriented x 3, responsive Laboratory Tests Test 10/20/17 10:15 White Blood Count 4.2 K/UL (4.8-10.8) L Red Blood Count 4.44 M/UL (4.20-5.40) Hemoglobin 14.1 G/DL (12.0-16.0) Hematocrit 40.2 % (37.0-47.0) Mean Corpuscular Volume 91 FL (80-99) Mean Corpuscular Hemoglobin 31.8 PG (27.0-31.0) H Mean Corpuscular Hemoglobin Concent 35.1 G/DL (32.0-36.0) Red Cell Distribution Width 11.0 % (11.6-14.8) L Platelet Count 229 K/UL (150-450) Mean Platelet Volume 6.5 FL (6.5-10.1) Neutrophils (%) (Auto) 54.2 % (45.0-75.0) Lymphocytes (%) (Auto) 34.6 % (20.0-45.0) Monocytes (%) (Auto) 8.7 % (1.0-10.0) Eosinophils (%) (Auto) 1.0 % (0.0-3.0) Basophils (%) (Auto) 1.5 % (0.0-2.0) Sodium Level 144 MMOL/L (136-145) Potassium Level 3.2 MMOL/L (3.5-5.1) L Chloride Level 109 MMOL/L (98-107) H Carbon Dioxide Level 26 MMOL/L (21-32) Anion Gap 9 mmol/L (5-15) Blood Urea Nitrogen 3 mg/dL (7-18) L Creatinine 0.8 MG/DL (0.55-1.30) Estimat Glomerular Filtration Rate > 60 mL/min (>60) Glucose Level 118 MG/DL (74-106) H Calcium Level 8.7 MG/DL (8.5-10.1) Magnesium Level 2.0 MG/DL (1.8-2.4) Current Medications Medications (Trade) Dose Ordered Sig/Riaz Route PRN Reason Start Time Stop Time Status Last Admin Dose Admin Acetaminophen (Tylenol) 650 mg Q6H PRN ORAL Mild Pain/Temp > 100.5 10/18/17 11:00 11/16/17 10:59 Ceftriaxone Sodium 1 gm/ Dextrose 55 ml @ 110 mls/hr Q24H IVPB 10/19/17 14:00 10/26/17 13:59 10/20/17 12:57 Dextrose/ Electrolytes 1,000 ml @ 100 mls/hr Q10H IV 10/18/17 16:00 11/16/17 15:59 10/20/17 04:27 Dronabinol (Marinol) 2.5 mg TID ORAL 10/18/17 18:00 11/17/17 17:59 10/20/17 12:58 Heparin Sodium (Porcine) (Heparin 5000 units/ml) 5,000 units EVERY 12 HOURS SUBQ 10/18/17 11:00 11/16/17 10:59 Metronidazole 100 ml @ 100 mls/hr Q8HR IVPB 10/19/17 14:00 10/26/17 13:59 10/20/17 06:24 Mirtazapine (Remeron) 15 mg BEDTIME ORAL 10/18/17 21:00 11/17/17 20:59 10/19/17 21:26 Morphine Sulfate (Morphine Sulfate) 2 mg Q6H PRN IVP Severe Pain (Pain Scale 7-10) 10/18/17 11:00 10/24/17 10:59 Ondansetron HCl (Zofran) 4 mg Q4H PRN IVP Nausea & Vomiting 10/18/17 11:00 11/16/17 10:59 Vitamin A/Vitamin D (A & D Oint) 1 applic EVERY 12 HOURS TOPIC 10/18/17 21:00 11/17/17 20:59 10/20/17 09:00 Aimee Deng M.D. Oct 20, 2017 15:47
--- NOTE | 2017-10-20 15:50 | General Surgery Progress Note ---
General Surgery-Progress Note Subjective Additional Comments states she was able to eat more soup today but still had some pain. no n/v/f/ c. no BM yet. at bedside. still with calorie count. Objective Last 24 Hour Vital Signs Date Time Temp Pulse Resp B/P (MAP) Pulse Ox O2 Delivery O2 Flow Rate FiO2 10/20/17 12:00 97.2 46 18 147/63 99 Room Air 10/20/17 11:44 44 10/20/17 07:35 97.5 41 18 141/60 96 Room Air 10/20/17 07:25 39 10/20/17 04:19 98.0 46 18 147/80 96 Room Air 10/20/17 04:00 53 10/20/17 00:25 98.0 49 18 109/55 99 10/20/17 00:00 44 10/19/17 20:25 97.3 42 18 117/60 96 10/19/17 20:00 50 10/19/17 16:00 46 10/19/17 16:00 96.4 45 18 133/55 99 Room Air I&O Intake and Output 10/19/17 10/20/17 19:00 07:00 Intake Total 120 ml 900 ml Output Total 500 ml 900 ml Balance -380 ml 0 ml Intake Oral 120 ml IV Total 0 ml 900 ml Output Urine Total 500 ml 900 ml # Voids 3 Drains: none Cardiovascular: RSR Respiratory: clear Abdomen: soft, non-tender, present bowel sounds Extremities: no tenderness Laboratory Tests Test 10/20/17 10:15 White Blood Count 4.2 K/UL (4.8-10.8) L Red Blood Count 4.44 M/UL (4.20-5.40) Hemoglobin 14.1 G/DL (12.0-16.0) Hematocrit 40.2 % (37.0-47.0) Mean Corpuscular Volume 91 FL (80-99) Mean Corpuscular Hemoglobin 31.8 PG (27.0-31.0) H Mean Corpuscular Hemoglobin Concent 35.1 G/DL (32.0-36.0) Red Cell Distribution Width 11.0 % (11.6-14.8) L Platelet Count 229 K/UL (150-450) Mean Platelet Volume 6.5 FL (6.5-10.1) Neutrophils (%) (Auto) 54.2 % (45.0-75.0) Lymphocytes (%) (Auto) 34.6 % (20.0-45.0) Monocytes (%) (Auto) 8.7 % (1.0-10.0) Eosinophils (%) (Auto) 1.0 % (0.0-3.0) Basophils (%) (Auto) 1.5 % (0.0-2.0) Sodium Level 144 MMOL/L (136-145) Potassium Level 3.2 MMOL/L (3.5-5.1) L Chloride Level 109 MMOL/L (98-107) H Carbon Dioxide Level 26 MMOL/L (21-32) Anion Gap 9 mmol/L (5-15) Blood Urea Nitrogen 3 mg/dL (7-18) L Creatinine 0.8 MG/DL (0.55-1.30) Estimat Glomerular Filtration Rate > 60 mL/min (>60) Glucose Level 118 MG/DL (74-106) H Calcium Level 8.7 MG/DL (8.5-10.1) Magnesium Level 2.0 MG/DL (1.8-2.4) Plan Problems: (1) Chronic abdominal pain Assessment & Plan: 67F with chronic abdominal pain, po intolerance, failure to thrive, with acute episode of abdominal pain. has long history of po intolerance and abdominal pain. has lost 40+ pounds over the last year because of this. states she was at [facility] with extensive work up but does not recall what or treatment. Currently pain improved but she is not willing to attempt oral intake. transferred from [place] for further care. leukocytosis resolved. bradycardic. no pain but serious food aversion. has emotional and mental issues that are apparent when she is interviewed. she refuses interventions when offered. she will agree to some (CT scan, IV fluids , now IV abx) but refuses to eat, take oral meds, feeds, etc. Repeat CT reviewed. possible colitis but after reviewing CT and physical exam clinically does not have colitis. no signs of vascular abnormality on CT as arteries are patent. psych consult reviewed. pending [facility] records. Requested records from [facility]. pending delivery -discussed calorie count with patient and . given noted intake will likely be low and will need alternate form of nutrition. would benefit from trial nasogastric feeding tube placement. given findings, history, and patients affect I believe a fair amount of this may be psychological. patient has serious blocks when it comes to care. she wants to live but does not want ANYthing done. she even gets upset when housecleaning cleans her room. she wants people at her bedside all day and states she is sad when she is alone. when given options she states she "cannot" have anything done. she does not want feeding tube, trial feeds, or anything. she just wants to be in the hospital with people around her to talk to. -okay for diet if patient will eat -IV fluids -IV Abx -appreciate psych input. thank you for this consultation. Siva Avalos Oct 20, 2017 15:50
[2017-10-20 16:46] VITALS: BP 135/63
--- NOTE | 2017-10-20 18:24 | Internal Med Progress Note ---
Subjective Date of Service: Oct 20, 2017 Physician Name Tyler Herrmann Attending Physician Wang Mendoza MD Current Medications Medications (Trade) Dose Ordered Sig/Riaz Route PRN Reason Start Time Stop Time Status Last Admin Dose Admin Acetaminophen (Tylenol) 650 mg Q6H PRN ORAL Mild Pain/Temp > 100.5 10/18/17 11:00 11/16/17 10:59 Ceftriaxone Sodium 1 gm/ Dextrose 55 ml @ 110 mls/hr Q24H IVPB 10/19/17 14:00 10/26/17 13:59 10/20/17 12:57 Dextrose/ Electrolytes 1,000 ml @ 100 mls/hr Q10H IV 10/18/17 16:00 11/16/17 15:59 10/20/17 18:10 Dronabinol (Marinol) 2.5 mg TID ORAL 10/18/17 18:00 11/17/17 17:59 10/20/17 12:58 Heparin Sodium (Porcine) (Heparin 5000 units/ml) 5,000 units EVERY 12 HOURS SUBQ 10/18/17 11:00 11/16/17 10:59 Metronidazole 100 ml @ 100 mls/hr Q8HR IVPB 10/19/17 14:00 10/26/17 13:59 10/20/17 15:41 Mirtazapine (Remeron) 15 mg BEDTIME ORAL 10/18/17 21:00 11/17/17 20:59 10/19/17 21:26 Morphine Sulfate (Morphine Sulfate) 2 mg Q6H PRN IVP Severe Pain (Pain Scale 7-10) 10/18/17 11:00 10/24/17 10:59 Ondansetron HCl (Zofran) 4 mg Q4H PRN IVP Nausea & Vomiting 10/18/17 11:00 11/16/17 10:59 Vitamin A/Vitamin D (A & D Oint) 1 applic EVERY 12 HOURS TOPIC 10/18/17 21:00 11/17/17 20:59 10/20/17 09:00 Allergies: Coded Allergies: AMOXICILLIN (Verified Adverse Reaction, Unknown, 10/17/17) Patient reports she fainted a couple years ago when she took amoxicillin ROS Limited/Unobtainable: No Constitutional: Reports: no symptoms HEENT: Reports: no symptoms Cardiovascular: Reports: no symptoms Respiratory: Reports: no symptoms Gastrointestinal/Abdominal: Reports: abdominal pain Genitourinary: Reports: no symptoms Neurologic/Psychiatric: Reports: no symptoms Subjective 67 YO F admitted with abdominal pain. Now colitis. Cover for Int Med-Dr Mendoza. Patient refused colonoscopy and most meds. Objective Last Vital Signs Date Time Temp Pulse Resp B/P (MAP) Pulse Ox O2 Delivery O2 Flow Rate FiO2 10/20/17 16:46 97.2 55 18 135/63 99 Room Air Laboratory Tests Test 10/20/17 10:15 White Blood Count 4.2 K/UL (4.8-10.8) L Red Blood Count 4.44 M/UL (4.20-5.40) Hemoglobin 14.1 G/DL (12.0-16.0) Hematocrit 40.2 % (37.0-47.0) Mean Corpuscular Volume 91 FL (80-99) Mean Corpuscular Hemoglobin 31.8 PG (27.0-31.0) H Mean Corpuscular Hemoglobin Concent 35.1 G/DL (32.0-36.0) Red Cell Distribution Width 11.0 % (11.6-14.8) L Platelet Count 229 K/UL (150-450) Mean Platelet Volume 6.5 FL (6.5-10.1) Neutrophils (%) (Auto) 54.2 % (45.0-75.0) Lymphocytes (%) (Auto) 34.6 % (20.0-45.0) Monocytes (%) (Auto) 8.7 % (1.0-10.0) Eosinophils (%) (Auto) 1.0 % (0.0-3.0) Basophils (%) (Auto) 1.5 % (0.0-2.0) Sodium Level 144 MMOL/L (136-145) Potassium Level 3.2 MMOL/L (3.5-5.1) L Chloride Level 109 MMOL/L (98-107) H Carbon Dioxide Level 26 MMOL/L (21-32) Anion Gap 9 mmol/L (5-15) Blood Urea Nitrogen 3 mg/dL (7-18) L Creatinine 0.8 MG/DL (0.55-1.30) Estimat Glomerular Filtration Rate > 60 mL/min (>60) Glucose Level 118 MG/DL (74-106) H Calcium Level 8.7 MG/DL (8.5-10.1) Magnesium Level 2.0 MG/DL (1.8-2.4) Intake and Output 10/19/17 10/20/17 19:00 07:00 Intake Total 120 ml 900 ml Output Total 500 ml 900 ml Balance -380 ml 0 ml Intake Oral 120 ml IV Total 0 ml 900 ml Output Urine Total 500 ml 900 ml # Voids 3 Objective General Appearance: WD/WN, no apparent distress, mild distress EENT: PERRL/EOMI, normal ENT inspection, TMs normal Neck: non-tender, normal alignment, supple Cardiovascular: normal peripheral pulses, normal rate, regular rhythm, no gallop/murmur, no JVD Respiratory/Chest: chest wall non-tender, lungs clear, normal breath sounds, no respiratory distress, no accessory muscle use Abdomen: soft, no organomegaly, no mass, decreased bowel sounds, guarding, tender Extremities: normal range of motion, non-tender Neurologic: sales agent protective service II-XII grossly normal, no motor/sensory deficits Skin: normal pigmentation, warm/dry Assessment/Plan Problem List: (1) Weight loss Assessment & Plan: Calorie count. See GI note. Refused colonoscopy. Cont full liquid diet. (2) Left lower quadrant pain Assessment & Plan: Continue morphine (3) Failure to thrive in adult (4) Colitis Assessment & Plan: Pt refused colonoscopy. Continue zosyn and flagyl. See GI note. (5) Anxiety Assessment & Plan: See psychiatry note. Status: stable TYLER HERRMANN Oct 20, 2017 18:24
--- NOTE | 2017-10-20 20:24 | Pulmonology Progress Note ---
Assessment/Plan Problems: (1) Bradycardia (2) Severe protein-calorie malnutrition (3) Abdominal pain (4) History of food intolerance (5) Failure to thrive in adult Assessment/Plan no new complains symptomatic treatment cardiology to see echo cardiogram d/w with ID keep in teli until cardio sees her. Subjective Constitutional: Reports: no symptoms HEENT: Repors: no symptoms Respiratory: Reports: no symptoms Cardiovascular: Reports: no symptoms Allergies: Coded Allergies: AMOXICILLIN (Verified Adverse Reaction, Unknown, 10/17/17) Patient reports she fainted a couple years ago when she took amoxicillin Objective Last 24 Hour Vital Signs Date Time Temp Pulse Resp B/P (MAP) Pulse Ox O2 Delivery O2 Flow Rate FiO2 10/20/17 16:46 97.2 55 18 135/63 99 Room Air 10/20/17 15:13 53 10/20/17 12:00 97.2 46 18 147/63 99 Room Air 10/20/17 11:44 44 10/20/17 07:35 97.5 41 18 141/60 96 Room Air 10/20/17 07:25 39 10/20/17 04:19 98.0 46 18 147/80 96 Room Air 10/20/17 04:00 53 10/20/17 00:25 98.0 49 18 109/55 99 10/20/17 00:00 44 10/19/17 20:25 97.3 42 18 117/60 96 Intake and Output 10/19/17 10/20/17 19:00 07:00 Intake Total 120 ml 900 ml Output Total 500 ml 900 ml Balance -380 ml 0 ml Intake Oral 120 ml IV Total 0 ml 900 ml Output Urine Total 500 ml 900 ml # Voids 3 General Appearance: WD/WN HEENT: normocephalic, atraumatic Respiratory/Chest: chest wall non-tender, lungs clear Breasts: no masses Cardiovascular: normal peripheral pulses, normal rate Abdomen: normal bowel sounds Genitourinary: normal external genitalia Extremities: no clubbing Skin: no lesions Neurologic/Psychiatric: dean of instruction II-XII grossly normal Laboratory Tests 10/20/17 10:15: White Blood Count 4.2L, Red Blood Count 4.44, Hemoglobin 14.1, Hematocrit 40.2, Mean Corpuscular Volume 91, Mean Corpuscular Hemoglobin 31.8H, Mean Corpuscular Hemoglobin Concent 35.1, Red Cell Distribution Width 11.0L, Platelet Count 229, Mean Platelet Volume 6.5, Neutrophils (%) (Auto) 54.2, Lymphocytes (%) (Auto) 34.6, Monocytes (%) (Auto) 8.7, Eosinophils (%) (Auto) 1.0, Basophils (%) (Auto ) 1.5, Sodium Level 144, Potassium Level 3.2L, Chloride Level 109H, Carbon Dioxide Level 26, Anion Gap 9, Blood Urea Nitrogen 3L, Creatinine 0.8, Estimat Glomerular Filtration Rate > 60, Glucose Level 118H, Calcium Level 8.7, Magnesium Level 2.0 Current Medications Medications (Trade) Dose Ordered Sig/Riaz Route PRN Reason Start Time Stop Time Status Last Admin Dose Admin Acetaminophen (Tylenol) 650 mg Q6H PRN ORAL Mild Pain/Temp > 100.5 10/18/17 11:00 11/16/17 10:59 Ceftriaxone Sodium 1 gm/ Dextrose 55 ml @ 110 mls/hr Q24H IVPB 10/19/17 14:00 10/26/17 13:59 10/20/17 12:57 Dextrose/ Electrolytes 1,000 ml @ 100 mls/hr Q10H IV 10/18/17 16:00 11/16/17 15:59 10/20/17 18:10 Dronabinol (Marinol) 2.5 mg TID ORAL 10/18/17 18:00 11/17/17 17:59 10/20/17 12:58 Heparin Sodium (Porcine) (Heparin 5000 units/ml) 5,000 units EVERY 12 HOURS SUBQ 10/18/17 11:00 11/16/17 10:59 Metronidazole 100 ml @ 100 mls/hr Q8HR IVPB 10/19/17 14:00 10/26/17 13:59 10/20/17 15:41 Mirtazapine (Remeron) 15 mg BEDTIME ORAL 10/18/17 21:00 11/17/17 20:59 10/19/17 21:26 Morphine Sulfate (Morphine Sulfate) 2 mg Q6H PRN IVP Severe Pain (Pain Scale 7-10) 10/18/17 11:00 10/24/17 10:59 Ondansetron HCl (Zofran) 4 mg Q4H PRN IVP Nausea & Vomiting 10/18/17 11:00 11/16/17 10:59 Vitamin A/Vitamin D (A & D Oint) 1 applic EVERY 12 HOURS TOPIC 10/18/17 21:00 11/17/17 20:59 10/20/17 09:00 MYESHA OVERTON Oct 20, 2017 20:23
[2017-10-20 20:35] VITALS: BP 144/61
--- NOTE | 2017-10-20 20:56 | Cardiology Progress Note ---
Assessment/Plan Assessment/Plan [id number] tft tele no need for pacing observe on tele Objective Last 24 Hour Vital Signs Date Time Temp Pulse Resp B/P (MAP) Pulse Ox O2 Delivery O2 Flow Rate FiO2 10/20/17 20:35 98.0 50 20 144/61 99 10/20/17 16:46 97.2 55 18 135/63 99 Room Air 10/20/17 15:13 53 10/20/17 12:00 97.2 46 18 147/63 99 Room Air 10/20/17 11:44 44 10/20/17 07:35 97.5 41 18 141/60 96 Room Air 10/20/17 07:25 39 10/20/17 04:19 98.0 46 18 147/80 96 Room Air 10/20/17 04:00 53 10/20/17 00:25 98.0 49 18 109/55 99 10/20/17 00:00 44 Intake and Output 10/19/17 10/20/17 19:00 07:00 Intake Total 120 ml 900 ml Output Total 500 ml 900 ml Balance -380 ml 0 ml Intake Oral 120 ml IV Total 0 ml 900 ml Output Urine Total 500 ml 900 ml # Voids 3 Laboratory Tests Test 10/20/17 10:15 White Blood Count 4.2 K/UL (4.8-10.8) L Red Blood Count 4.44 M/UL (4.20-5.40) Hemoglobin 14.1 G/DL (12.0-16.0) Hematocrit 40.2 % (37.0-47.0) Mean Corpuscular Volume 91 FL (80-99) Mean Corpuscular Hemoglobin 31.8 PG (27.0-31.0) H Mean Corpuscular Hemoglobin Concent 35.1 G/DL (32.0-36.0) Red Cell Distribution Width 11.0 % (11.6-14.8) L Platelet Count 229 K/UL (150-450) Mean Platelet Volume 6.5 FL (6.5-10.1) Neutrophils (%) (Auto) 54.2 % (45.0-75.0) Lymphocytes (%) (Auto) 34.6 % (20.0-45.0) Monocytes (%) (Auto) 8.7 % (1.0-10.0) Eosinophils (%) (Auto) 1.0 % (0.0-3.0) Basophils (%) (Auto) 1.5 % (0.0-2.0) Sodium Level 144 MMOL/L (136-145) Potassium Level 3.2 MMOL/L (3.5-5.1) L Chloride Level 109 MMOL/L (98-107) H Carbon Dioxide Level 26 MMOL/L (21-32) Anion Gap 9 mmol/L (5-15) Blood Urea Nitrogen 3 mg/dL (7-18) L Creatinine 0.8 MG/DL (0.55-1.30) Estimat Glomerular Filtration Rate > 60 mL/min (>60) Glucose Level 118 MG/DL (74-106) H Calcium Level 8.7 MG/DL (8.5-10.1) Magnesium Level 2.0 MG/DL (1.8-2.4) BRENDEN YOUSIF Oct 20, 2017 20:56
--- NOTE | 2017-10-20 22:45 | Consultation ---
DATE OF CONSULTATION: 10/20/2017 CARDIOLOGY CONSULTATION CONSULTING PHYSICIAN: Demond Bowers M.D. ATTENDING PHYSICIAN: Wang Mendoza M.D. REFERRING PHYSICIAN: Amira Botello M.D. REASON FOR REFERRAL: Bradycardia. HISTORY OF PRESENT ILLNESS: This is an elderly female, who has been admitted to the hospital. The patient has had problem with eating with abdominal pain and p.o. intolerance for months apparently. She had been admitted to [facility] and subsequently transferred to [facility] under the care of Dr. Mendoza and this consultation is requested today by Dr. Botello because of the patient's bradycardia. The patient denies any chest pain or shortness of breath at this time. No PND. No orthopnea. She has not really had any palpitations. 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 In either case, the patient has had problem with one episode of prior syncope when she strained to have a bowel movement sometime ago, but not since then. PAST MEDICAL HISTORY: Negative for diabetes or high blood pressure. No high cholesterol. No heart attack. No cancer, stroke, hepatitis, or tuberculosis. No asthma or emphysema. No ulcers were noted. No kidney problems, liver problems, thyroid problems, anemia, arthritis, blood clots anywhere. Her chart indicates that despite the fact that she has had abdominal pain, actually [facility] data shows the patient's medical problems including weight loss, dysphagia, nausea, dyspepsia, anorexia, early satiety, lower abdominal pain, gas bloating, diarrhea, constipation, family history of colon cancer, adnexal mass, dehydration, cachexia, anxiety, weakness, protein-calorie malnutrition, physical deconditioning, paranoid personality disorder, cognitive impairment, hematuria, UTI, generalized abdominal pain, volume depletion, pyelonephritis. Her abdominal pain was felt to be possibly psychogenic in origin according to the [facility] record. L2 compression fracture, noncompliance with medical workup. ALLERGIES: She denies any allergies to medications. MEDICATIONS: The patient's medications include Flagyl, Marinol, Remeron. She did receive potassium and Zofran. SOCIAL HISTORY: She does not smoke, never did. Does not drink, never did. Denies any drug use. 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 REVIEW OF SYSTEMS: GASTROINTESTINAL: She has had some nausea, but no diarrhea or constipation at this time. GENITOURINARY: No burning on urination. PULMONARY: Negative. CONSTITUTIONAL: Negative. NEUROLOGICAL: Negative. PHYSICAL EXAMINATION: GENERAL: Shows to be an elderly female, in no respiratory distress, thin. NECK: Supple. No jugular venous distention. No abdominojugular reflux is noted. LUNGS: Appear to be clear to auscultation and percussion. CARDIAC: Regular rhythm. Bradycardic. No heaves, thrills, or gallops noted. ABDOMEN: Soft and nontender. Positive bowel sounds. EXTREMITIES: There is no clubbing or cyanosis nor is there any edema. NEUROLOGICAL: She is awake, alert, responsive, and in no apparent respiratory distress. LABORATORY AND DIAGNOSTIC DATA: EKG showed sinus bradycardia on 10/18/2017, profound degree of rate of 38. In comparison, she had an EKG performed at [facility] on 09/04/2017, that showed sinus bradycardia as well although I am not able to download that electrocardiogram for review at this time. There are several blood . White count of 4.2, hemoglobin 14.1, and platelet count of 229,000. Sodium 144, potassium 3.3, chloride 109, bicarbonate 26, BUN 3, creatinine 0.8, glucose of 116, her albumin of 3.1, and lactic acid of 1.0 previously. Her last TSH at [facility] performed 10 months ago was 2.3, but not here. Telemetry data shows sinus bradycardia in the 40s to 50s range. No significant pauses. The QRS complexes are narrow. No widened QRS complexes are noted. ASSESSMENT AND PLAN: 1. Sinus bradycardia. 2. Abdominal pain. 3. Poor p.o. intake. 4. Pyelonephritis history. 5. Protein-calorie malnutrition. 6. Abdominal pain, suspected to be psychogenic based on workup at [facility]. 7. History of L2 compression fracture, stable since 11/2011. Dr. Botello, this patient was seen in cardiac consultation. There is no need for pacemaker at the present time. The patient should have thyroid-stimulating hormone checked. It is possible that her bradycardia may be related to malnutrition although certain things need to be excluded and the patient should be placed on emergency planning and response manager for observation. Demond Bowers M.D. DR: Mayela JOB#: [id number] CC:
[2017-10-21 00:20] VITALS: BP 118/52
[2017-10-21 04:20] VITALS: BP 154/100
[2017-10-21 08:00] VITALS: BP 130/67
[2017-10-21] MEDS: Dronabinol 2.5mg Cap ORAL SCH ×4 (09:00→21:20)
[2017-10-21] MEDS: Vitamin A&D Oint 2oz Tube TOPIC SCH ×2 (09:00→21:29)
[2017-10-21] MEDS: Heparin 5000 units/ml inj SUBQ SCH ×2 (09:00→21:28)
--- NOTE | 2017-10-21 10:46 | GI Progress Note ---
Assessment/Plan Problems: (1) Anxiety ICD Codes: F41.9 - Anxiety disorder, unspecified SNOMED: 32236652 (2) Weight loss ICD Codes: R63.4 - Abnormal weight loss SNOMED: 66122273, 305890073 (3) Colitis ICD Codes: K52.9 - Noninfective gastroenteritis and colitis, unspecified SNOMED: 30671249 (4) Severe protein-calorie malnutrition ICD Codes: E43 - Unspecified severe protein-calorie malnutrition SNOMED: 121078208 (5) History of food intolerance ICD Codes: Z87.19 - Personal history of other diseases of the digestive system SNOMED: 283512101 (6) Failure to thrive in adult ICD Codes: R62.7 - Adult failure to thrive SNOMED: 605878341 (7) Chronic abdominal pain ICD Codes: R10.9 - Unspecified abdominal pain; G89.29 - Other chronic pain SNOMED: 776611096 Status: unchanged Status Narrative Discussed with Dr. Bradford. Assessment/Plan CT AP reviewed >> possible colitis refused colonoscopy refusing meds FLD, adv as tolerated calorie count x 48 hours add marinol colace ppi IV IV hydration + electrolyte correction collect stool studies, cdiff if patient has diarrhea fu labs, CEA fu pysc recs Subjective Subjective refusing to eat Objective Last 24 Hour Vital Signs Date Time Temp Pulse Resp B/P (MAP) Pulse Ox O2 Delivery O2 Flow Rate FiO2 10/21/17 08:00 97.2 51 20 130/67 98 Room Air 10/21/17 08:00 51 10/21/17 04:20 97.2 51 20 154/100 100 Room Air 10/21/17 04:00 46 10/21/17 00:20 97.5 43 20 118/52 99 10/21/17 00:00 44 10/20/17 20:35 98.0 50 20 144/61 99 10/20/17 20:00 58 10/20/17 16:46 97.2 55 18 135/63 99 Room Air 10/20/17 15:13 53 10/20/17 12:00 97.2 46 18 147/63 99 Room Air 10/20/17 11:44 44 Intake and Output 10/20/17 10/21/17 19:00 07:00 Intake Total 1810 ml 1333 ml Balance 1810 ml 1333 ml Intake Oral 700 ml IV Total 1110 ml 1333 ml # Voids 2 2 Height (Feet): 5 Weight (Pounds): 72 General Appearance: WD/WN, no apparent distress, alert, thin Cardiovascular: normal rate Respiratory/Chest: normal breath sounds, no respiratory distress Abdominal Exam: normal bowel sounds, non tender, soft Extremities: normal range of motion, non-tender Samra Goncalves N.P. Oct 21, 2017 10:46
[2017-10-21 12:02] VITALS: BP 153/77
[2017-10-21] MEDS: cefTRIAXone 1 GM in D5W 55 ML IVPB SCH (13:05)
--- NOTE | 2017-10-21 13:10 | Cardiology Report ---
APPROVED REPORT EKG Measurement Heart [id number] Sinus bradycardia Otherwise normal ECG
--- NOTE | 2017-10-21 14:32 | Cardiology Report ---
APPROVED REPORT EXAM: Two-dimensional and M-mode echocardiogram with Doppler and color Doppler. INDICATION BRADYCARDIA M-Mode DIMENSIONS IVSd0.9 (0.7-1.1cm)Left Atrium (MM)2.0 (1.6-4.0cm) LVDd4.3 (3.5-5.6cm)Aortic Root2.4 (2.0-3.7cm) PWd0.9 (0.7-1.1cm)Aortic Cusp Exc.1.7 (1.5-2.0cm) IVSs1.6 cm LVDs2.6 (2.5-4.0cm) PWs1.2 cm Normal left ventricular chamber size, systolic function and wall motion. Left ventricular ejection fraction estimated to be 65-70%. Mild left ventricular hypertrophy by 2-D. No evidence of pericardial effusion. All other cardiac chamber size are within normal limits. Focal aortic valve sclerosis with adequate cusp excursion. Thickened mitral valve leaflets with normal excursion. Mitral annulus and aortic root calcification. Normal pulmonic valve structure. Normal tricuspid valve structure. IVC at normal size with physiologic collapse . A color flow and spectral Doppler study was performed and revealed: No aortic regurgitation. Mild mitral regurgitation . Mitral diastolic velocities suggest reduced left ventricular relaxation c/w mild LV diastolic dysfunction (Grade I ). Trace tricuspid regurgitation. Tricuspid systolic velocities suggests peak right ventricular systolic pressure of 25 mmHg. No Pulmonic regurgitation present.
--- NOTE | 2017-10-21 14:47 | General Surgery Progress Note ---
General Surgery-Progress Note Subjective Additional Comments patient seen and examined. actually looks improved today. no longer looks dehydrated and volume depleted. mentally improved as well. still very dependant and asks that people stay in her room all day. does not like being alone. states she was able to eat more yesterday but not in the mood today as she fears pain. no n/v/f/c. Objective Last 24 Hour Vital Signs Date Time Temp Pulse Resp B/P (MAP) Pulse Ox O2 Delivery O2 Flow Rate FiO2 10/21/17 12:02 97.0 46 20 153/77 99 Room Air 10/21/17 08:00 97.2 51 20 130/67 98 Room Air 10/21/17 08:00 51 10/21/17 04:20 97.2 51 20 154/100 100 Room Air 10/21/17 04:00 46 10/21/17 00:20 97.5 43 20 118/52 99 10/21/17 00:00 44 10/20/17 20:35 98.0 50 20 144/61 99 10/20/17 20:00 58 10/20/17 16:46 97.2 55 18 135/63 99 Room Air 10/20/17 15:13 53 I&O Intake and Output 10/20/17 10/21/17 19:00 07:00 Intake Total 1810 ml 1333 ml Balance 1810 ml 1333 ml Intake Oral 700 ml IV Total 1110 ml 1333 ml # Voids 2 2 Drains: none Cardiovascular: RSR Respiratory: clear Abdomen: soft, flat, non-tender, present bowel sounds Extremities: no tenderness Plan Problems: (1) Chronic abdominal pain Assessment & Plan: 67F with chronic abdominal pain, po intolerance, failure to thrive, with acute episode of abdominal pain. has long history of po intolerance and abdominal pain. has lost 40+ pounds over the last year because of this. states she was at [facility] with extensive work up but does not recall what or treatment. Currently pain improved but she is not willing to attempt oral intake. transferred from [place] for further care. leukocytosis resolved. bradycardic. no pain but serious food aversion. has emotional and mental issues that are apparent when she is interviewed. she refuses interventions when offered. she will agree to some (CT scan, IV fluids , now IV abx) but refuses to eat, take oral meds, feeds, etc. Repeat CT reviewed. possible colitis but after reviewing CT and physical exam clinically does not have colitis. no signs of vascular abnormality on CT as arteries are patent. psych consult reviewed. pending [facility] records. Requested records from [facility]. pending delivery -discussed calorie count with patient and . given noted intake will likely be low and will need alternate form of nutrition. would benefit from trial nasogastric feeding tube placement. given findings, history, and patients affect I believe a fair amount of this may be psychological. patient has serious blocks when it comes to care. she wants to live but does not want ANYthing done. she even gets upset when housecleaning cleans her room. she wants people at her bedside all day and states she is sad when she is alone. when given options she states she "cannot" have anything done. she does not want feeding tube, trial feeds, or anything. she just wants to be in the hospital with people around her to talk to. -okay for diet if patient will eat -Pending final calorie count -IV fluids -IV Abx -appreciate psych input. thank you for this consultation. Siva Avalos Oct 21, 2017 14:47
--- NOTE | 2017-10-21 15:10 | Cardiology Report ---
APPROVED REPORT EKG Measurement Heart [id number] 156P86 [id number] Marked sinus bradycardia Abnormal ECG
--- NOTE | 2017-10-21 15:40 | Pulmonology Progress Note ---
Assessment/Plan Problems: (1) Bradycardia (2) Severe protein-calorie malnutrition (3) Abdominal pain (4) History of food intolerance (5) Failure to thrive in adult Assessment/Plan no new complains symptomatic treatment cardiology to see echo cardiogram d/w with ID transfer to med/surg f/rose by psychiatry Subjective ROS Limited/Unobtainable: No Constitutional: Reports: no symptoms HEENT: Repors: no symptoms Respiratory: Reports: no symptoms Allergies: Coded Allergies: AMOXICILLIN (Verified Adverse Reaction, Unknown, 10/17/17) Patient reports she fainted a couple years ago when she took amoxicillin Objective Last 24 Hour Vital Signs Date Time Temp Pulse Resp B/P (MAP) Pulse Ox O2 Delivery O2 Flow Rate FiO2 10/21/17 12:02 97.0 46 20 153/77 99 Room Air 10/21/17 08:00 97.2 51 20 130/67 98 Room Air 10/21/17 08:00 51 10/21/17 04:20 97.2 51 20 154/100 100 Room Air 10/21/17 04:00 46 10/21/17 00:20 97.5 43 20 118/52 99 10/21/17 00:00 44 10/20/17 20:35 98.0 50 20 144/61 99 10/20/17 20:00 58 10/20/17 16:46 97.2 55 18 135/63 99 Room Air Intake and Output 10/20/17 10/21/17 18:59 06:59 Intake Total 1810 ml 1333 ml Balance 1810 ml 1333 ml Intake Oral 700 ml IV Total 1110 ml 1333 ml # Voids 2 2 General Appearance: cachetic HEENT: normocephalic, atraumatic Respiratory/Chest: chest wall non-tender, normal breath sounds Breasts: no masses Cardiovascular: normal rate Abdomen: normal bowel sounds, soft, non tender Extremities: no clubbing Neurologic/Psychiatric: smutter II-XII grossly normal Current Medications Medications (Trade) Dose Ordered Sig/Riaz Route PRN Reason Start Time Stop Time Status Last Admin Dose Admin Acetaminophen (Tylenol) 650 mg Q6H PRN ORAL Mild Pain/Temp > 100.5 10/18/17 11:00 11/16/17 10:59 Ceftriaxone Sodium 1 gm/ Dextrose 55 ml @ 110 mls/hr Q24H IVPB 10/19/17 14:00 10/26/17 13:59 10/21/17 13:05 Clonazepam (KlonoPIN) 1 mg BEDTIME ORAL 10/20/17 23:45 10/27/17 23:44 Dextrose/ Electrolytes 1,000 ml @ 100 mls/hr Q10H IV 10/18/17 16:00 11/16/17 15:59 10/21/17 15:04 Dronabinol (Marinol) 2.5 mg TID ORAL 10/18/17 18:00 11/17/17 17:59 10/20/17 12:58 Heparin Sodium (Porcine) (Heparin 5000 units/ml) 5,000 units EVERY 12 HOURS SUBQ 10/18/17 11:00 11/16/17 10:59 Metronidazole 100 ml @ 100 mls/hr Q8HR IVPB 10/19/17 14:00 10/26/17 13:59 10/21/17 14:55 Mirtazapine (Remeron) 15 mg BEDTIME ORAL 10/18/17 21:00 11/17/17 20:59 10/19/17 21:26 Morphine Sulfate (Morphine Sulfate) 2 mg Q6H PRN IVP Severe Pain (Pain Scale 7-10) 10/18/17 11:00 10/24/17 10:59 Ondansetron HCl (Zofran) 4 mg Q4H PRN IVP Nausea & Vomiting 10/18/17 11:00 11/16/17 10:59 Vitamin A/Vitamin D (A & D Oint) 1 applic EVERY 12 HOURS TOPIC 10/18/17 21:00 11/17/17 20:59 10/20/17 21:50 YMESHA OVERTON Oct 21, 2017 15:40
[2017-10-21 16:00] VITALS: BP 146/76
--- NOTE | 2017-10-21 16:14 | Infectious Diseases Prog Note ---
Assessment/Plan Assessment/Plan Assessment: Acute on chronic post-pandrial abd pain- unclear etiology--?acute superimposed colitis per CT findings. DDx of Etiology of chronic abd pain is extensive and includes infectious, auto-immune (connective tissue disorders, vasculitis such as Polyarteritis nodosa), inflammatory and psychogenic/psicosomatic. As far of infectious process r/o HIV, mycobacterial, histoplasmosis and parasitic causes. Dry throat and difficulty swallowing also raises suspicion of auto-immune process/connective tissue disorder such as Scleroderma. -Patient had extensive w/u at [facility] (awaiting records). She is very anxious and exhibits dependency. Suspicion for psychosomatic process although evaluating for organic etiologies, which so far has been negative. -CT abd/p w/ : Apparent mild thickening of the wall of the descending colon not optimally evaluated on this study. Please correlate for colitis.Mild free fluid within the pelvis. Suggestion of fibroid uterus. Atherosclerotic vascular disease -non contrast CT (@[place])- jejunal wall thickening -CRP midly elevated at 4.8>2.5, ESR 31 -neg: HIV 1/2 ab (rapid test), u/a, RPR, hep panel, RF, CONTRERAS, ANCA -C3 low, C4 normal Failure to thrive Leukocytosis, resolved -afebrile s/p salpingo-oopherectomy for bening mass Plan: -Continue empiric Ceftriaxone and Flagyl abx d#5/5 for possible acute superimposed colitis- ok for discharge tomorrow am -10/19 SP Zosyn #3 -f/u HIV VL, Qtb gold, histoplasma ag urine and ab, CCP, UPEP/SPEP, o+p x3, giardia/cyclospora/isospora/microsporidum stool -f/u cx -Monitor CBC/BMP, temperatures -GI, surgery following -Psych f/u- patient very anxious -awaiting [facility] records Thank you for this consultation. Will continue to follow along with you. Discussed with RN and at bedside Subjective Allergies: Coded Allergies: AMOXICILLIN (Verified Adverse Reaction, Unknown, 10/17/17) Patient reports she fainted a couple years ago when she took amoxicillin Subjective afebrile no leukocytosis awaiting [facility] records anxious about been changed of room Objective Vital Signs Last 24 Hour Vital Signs Date Time Temp Pulse Resp B/P (MAP) Pulse Ox O2 Delivery O2 Flow Rate FiO2 10/21/17 12:02 97.0 46 20 153/77 99 Room Air 10/21/17 08:00 97.2 51 20 130/67 98 Room Air 10/21/17 08:00 51 10/21/17 04:20 97.2 51 20 154/100 100 Room Air 10/21/17 04:00 46 10/21/17 00:20 97.5 43 20 118/52 99 10/21/17 00:00 44 10/20/17 20:35 98.0 50 20 144/61 99 10/20/17 20:00 58 10/20/17 16:46 97.2 55 18 135/63 99 Room Air Height (Feet): 5 Weight (Pounds): 72 Objective General Appearance: no apparent distress, alert, cachetic Lines, tubes and drains: peripheral HEENT: normocephalic, PERRL, other - dry, no oral lesions Neck: supple, normal inspection Respiratory/Chest: lungs clear, normal breath sounds, no respiratory distress, no accessory muscle use Cardiovascular/Chest: normal peripheral pulses, regular rhythm Abdomen: decreased bowel sounds, diffuse abd tenderness (however patient pressed her abdomen deeply and did not seemed to show pain or discomfort), soft , no organomegaly, no mass Extremities: normal inspection, no swollen,erythematous or tender joints Skin Exam: warm/dry, no rash Neurologic: alert, oriented x 3, responsive Current Medications Medications (Trade) Dose Ordered Sig/Riaz Route PRN Reason Start Time Stop Time Status Last Admin Dose Admin Acetaminophen (Tylenol) 650 mg Q6H PRN ORAL Mild Pain/Temp > 100.5 10/18/17 11:00 11/16/17 10:59 Ceftriaxone Sodium 1 gm/ Dextrose 55 ml @ 110 mls/hr Q24H IVPB 10/19/17 14:00 10/26/17 13:59 10/21/17 13:05 Clonazepam (KlonoPIN) 1 mg BEDTIME ORAL 10/20/17 23:45 10/27/17 23:44 Dextrose/ Electrolytes 1,000 ml @ 100 mls/hr Q10H IV 10/18/17 16:00 11/16/17 15:59 10/21/17 15:04 Dronabinol (Marinol) 2.5 mg TID ORAL 10/18/17 18:00 11/17/17 17:59 10/20/17 12:58 Heparin Sodium (Porcine) (Heparin 5000 units/ml) 5,000 units EVERY 12 HOURS SUBQ 10/18/17 11:00 11/16/17 10:59 Metronidazole 100 ml @ 100 mls/hr Q8HR IVPB 10/19/17 14:00 10/26/17 13:59 10/21/17 14:55 Mirtazapine (Remeron) 15 mg BEDTIME ORAL 10/18/17 21:00 11/17/17 20:59 10/19/17 21:26 Morphine Sulfate (Morphine Sulfate) 2 mg Q6H PRN IVP Severe Pain (Pain Scale 7-10) 10/18/17 11:00 10/24/17 10:59 Ondansetron HCl (Zofran) 4 mg Q4H PRN IVP Nausea & Vomiting 10/18/17 11:00 11/16/17 10:59 Vitamin A/Vitamin D (A & D Oint) 1 applic EVERY 12 HOURS TOPIC 10/18/17 21:00 11/17/17 20:59 10/20/17 21:50 Aimee Deng M.D. Oct 21, 2017 16:14
--- NOTE | 2017-10-21 16:20 | Internal Med Progress Note ---
Subjective Physician Name Wang Mendoza Attending Physician Wang Mendoza MD Current Medications Medications (Trade) Dose Ordered Sig/Riaz Route PRN Reason Start Time Stop Time Status Last Admin Dose Admin Acetaminophen (Tylenol) 650 mg Q6H PRN ORAL Mild Pain/Temp > 100.5 10/18/17 11:00 11/16/17 10:59 Ceftriaxone Sodium 1 gm/ Dextrose 55 ml @ 110 mls/hr Q24H IVPB 10/19/17 14:00 10/26/17 13:59 10/21/17 13:05 Clonazepam (KlonoPIN) 1 mg BEDTIME ORAL 10/20/17 23:45 10/27/17 23:44 Dextrose/ Electrolytes 1,000 ml @ 100 mls/hr Q10H IV 10/18/17 16:00 11/16/17 15:59 10/21/17 15:04 Dronabinol (Marinol) 2.5 mg TID ORAL 10/18/17 18:00 11/17/17 17:59 10/20/17 12:58 Heparin Sodium (Porcine) (Heparin 5000 units/ml) 5,000 units EVERY 12 HOURS SUBQ 10/18/17 11:00 11/16/17 10:59 Metronidazole 100 ml @ 100 mls/hr Q8HR IVPB 10/19/17 14:00 10/26/17 13:59 10/21/17 14:55 Mirtazapine (Remeron) 15 mg BEDTIME ORAL 10/18/17 21:00 11/17/17 20:59 10/19/17 21:26 Morphine Sulfate (Morphine Sulfate) 2 mg Q6H PRN IVP Severe Pain (Pain Scale 7-10) 10/18/17 11:00 10/24/17 10:59 Ondansetron HCl (Zofran) 4 mg Q4H PRN IVP Nausea & Vomiting 10/18/17 11:00 11/16/17 10:59 Vitamin A/Vitamin D (A & D Oint) 1 applic EVERY 12 HOURS TOPIC 10/18/17 21:00 11/17/17 20:59 10/20/17 21:50 Allergies: Coded Allergies: AMOXICILLIN (Verified Adverse Reaction, Unknown, 10/17/17) Patient reports she fainted a couple years ago when she took amoxicillin Subjective awake, alert, responsive, NAD, C/o abdominal pain, poor appetite Objective Last Vital Signs Date Time Temp Pulse Resp B/P (MAP) Pulse Ox O2 Delivery O2 Flow Rate FiO2 10/21/17 12:02 97.0 46 20 153/77 99 Room Air Intake and Output 10/20/17 10/21/17 19:00 07:00 Intake Total 1810 ml 1333 ml Balance 1810 ml 1333 ml Intake Oral 700 ml IV Total 1110 ml 1333 ml # Voids 2 2 Objective General: No acute distress, awake and alert, cachexia, HEENT: NCAT, sclera anicteric, PERRL, EOMI. Neck: Supple, no significant jugular venous distention, Lungs: Good inspiratory effort, clear to auscultation bilaterally, no Wheeze or Rales. Heart: Regular rate and rhythm, normal S1/S2, no murmurs Abdomen: soft, nontender, nondistended. Normoactive bowel sounds. / Rectal: Refused and deferred. Extremities: No Cyanosis , clubbing or edema. Neuro: A&O x 3, Able to move all extremities Skin: warm, no rashes or lesions Psych: Normal mood and affect Assessment/Plan Assessment/Plan 1) Bradycardia (2) Severe protein-calorie malnutrition (3) Acute on chronic Abdominal pain (4) History of food intolerance (5) Failure to thrive in adult (6) Colitis Plan: DC Telemetry discuss with at bedside IVF Abx: Milad DC Home in AM Wang Mendoza MD Oct 21, 2017 16:20
--- NOTE | 2017-10-21 16:33 | Cardiology Progress Note ---
Assessment/Plan Assessment/Plan 1. Sinus bradycardia seem improved ? vagal medicated at leat partially vs malnutrition . 2. Abdominal pain. 3. Poor p.o. intake. 4. Pyelonephritis history. 5. Protein-calorie malnutrition. 6. Abdominal pain, suspected to be psychogenic based on workup at [facility]. 7. History of L2 compression fracture, stable since 11/2011 tele sinus kathy mainly resolved i have discussed with pt to avoid neg chronotropic meds infuture no need for any pacder at this time ok to dc home in am form my view point if planned Subjective Cardiovascular: Denies: chest pain, lightheadedness Respiratory: Denies: shortness of breath Subjective nto feel well not want to eat, not want tot take medication Objective Last 24 Hour Vital Signs Date Time Temp Pulse Resp B/P (MAP) Pulse Ox O2 Delivery O2 Flow Rate FiO2 10/21/17 12:02 97.0 46 20 153/77 99 Room Air 10/21/17 08:00 97.2 51 20 130/67 98 Room Air 10/21/17 08:00 51 10/21/17 04:20 97.2 51 20 154/100 100 Room Air 10/21/17 04:00 46 10/21/17 00:20 97.5 43 20 118/52 99 10/21/17 00:00 44 10/20/17 20:35 98.0 50 20 144/61 99 10/20/17 20:00 58 10/20/17 16:46 97.2 55 18 135/63 99 Room Air General Appearance: alert Neck: supple Cardiovascular: normal rate, regular rhythm Respiratory/Chest: lungs clear Abdomen: normal bowel sounds, non tender, soft Extremities: no swelling Intake and Output 10/20/17 10/21/17 19:00 07:00 Intake Total 1810 ml 1333 ml Balance 1810 ml 1333 ml Intake Oral 700 ml IV Total 1110 ml 1333 ml # Voids 2 2 BRENDEN YOUSIF Oct 21, 2017 16:33
[2017-10-21] MEDS ORDERED: Morphine Sulfate 2mg/ml Inj IVP PRN (18:30)
--- NOTE | 2017-10-21 19:06 | Internal Med Progress Note ---
Subjective Date of Service: Oct 21, 2017 Physician Name Tyler Herrmann Attending Physician Wang Mendoza MD Current Medications Medications (Trade) Dose Ordered Sig/Riaz Route PRN Reason Start Time Stop Time Status Last Admin Dose Admin Acetaminophen (Tylenol) 650 mg Q6H PRN ORAL Mild Pain/Temp > 100.5 10/21/17 18:30 11/16/17 18:29 Clonazepam (KlonoPIN) 1 mg BEDTIME ORAL 10/21/17 21:00 10/27/17 23:44 Dextrose/ Electrolytes 1,000 ml @ 100 mls/hr Q10H IV 10/21/17 19:30 11/16/17 19:29 Dronabinol (Marinol) 2.5 mg TID ORAL 10/21/17 21:00 11/17/17 20:59 Heparin Sodium (Porcine) (Heparin 5000 units/ml) 5,000 units EVERY 12 HOURS SUBQ 10/21/17 21:00 11/16/17 10:59 Metronidazole 100 ml @ 100 mls/hr Q8HR IVPB 10/21/17 22:00 10/26/17 13:59 Mirtazapine (Remeron) 15 mg BEDTIME ORAL 10/21/17 21:00 11/17/17 20:59 Morphine Sulfate (Morphine Sulfate) 2 mg Q6H PRN IVP Severe Pain (Pain Scale 7-10) 10/21/17 18:30 10/24/17 18:29 Ondansetron HCl (Zofran) 4 mg Q4H PRN IVP Nausea & Vomiting 10/21/17 19:00 11/16/17 10:59 Vitamin A/Vitamin D (A & D Oint) 1 applic EVERY 12 HOURS TOPIC 10/21/17 21:00 11/17/17 20:59 Allergies: Coded Allergies: AMOXICILLIN (Verified Adverse Reaction, Unknown, 10/17/17) Patient reports she fainted a couple years ago when she took amoxicillin ROS Limited/Unobtainable: No Constitutional: Reports: no symptoms HEENT: Reports: no symptoms Cardiovascular: Reports: no symptoms Respiratory: Reports: no symptoms Gastrointestinal/Abdominal: Reports: abdominal pain Genitourinary: Reports: no symptoms Neurologic/Psychiatric: Reports: no symptoms Subjective 67 YO F admitted with abdominal pain. Now colitis. Cover for Int Med-Dr Mendoza. Patient refused colonoscopy and most meds. Objective Last Vital Signs Date Time Temp Pulse Resp B/P (MAP) Pulse Ox O2 Delivery O2 Flow Rate FiO2 10/21/17 16:00 97.7 49 20 146/76 99 Room Air Intake and Output 10/20/17 10/21/17 19:00 07:00 Intake Total 1810 ml 1333 ml Balance 1810 ml 1333 ml Intake Oral 700 ml IV Total 1110 ml 1333 ml # Voids 2 2 Objective General Appearance: WD/WN, no apparent distress, mild distress EENT: PERRL/EOMI, normal ENT inspection, TMs normal Neck: non-tender, normal alignment, supple Cardiovascular: normal peripheral pulses, normal rate, regular rhythm, no gallop/murmur, no JVD Respiratory/Chest: chest wall non-tender, lungs clear, normal breath sounds, no respiratory distress, no accessory muscle use Abdomen: soft, no organomegaly, no mass, decreased bowel sounds, guarding, tender Extremities: normal range of motion, non-tender 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 See GI note. Refused colonoscopy. Cont full liquid diet. (2) Left lower quadrant pain Assessment & Plan: Continue morphine (3) Failure to thrive in adult (4) Colitis Assessment & Plan: Pt refused colonoscopy. Continue zosyn and flagyl. See GI note. (5) Anxiety Assessment & Plan: See psychiatry note. Status: unchanged TYLER HERRMANN Oct 21, 2017 19:06
[2017-10-21 20:00] VITALS: BP 124/83
[2017-10-22] VITALS: BP 132/72
[2017-10-22 04:00] VITALS: BP 147/67
[2017-10-22 07:15] LABS: BASOPHILS % (AUTO) 1.7 % (0.0-2.0); EOSINOPHILS % (AUTO) 1.2 % (0.0-3.0); HEMATOCRIT 43.6 % (37.0-47.0); HEMOGLOBIN 15.3 G/DL (12.0-16.0); LYMPHOCYTES % (AUTO) 37.5 % (20.0-45.0); MEAN CORPUSCULAR VOLUME 89 FL (80-99); MONOCYTES % (AUTO) 8.8 % (1.0-10.0); NEUTROPHILS % (AUTO) 50.7 % (45.0-75.0); PLATELET COUNT 215 K/UL (150-450); RED CELL DISTRIBUTION WIDTH 10.7 % (11.6-14.8); WHITE BLOOD COUNT 6.3 K/UL (4.8-10.8)
[2017-10-22 08:02] LABS: ANION GAP 13 mmol/L (5-15); BLOOD UREA NITROGEN 1 mg/dL (7-18); CALCIUM 9.3 MG/DL (8.5-10.1); CARBON DIOXIDE 22 MMOL/L (21-32); CHLORIDE 107 MMOL/L (98-107); CREATININE 0.6 MG/DL (0.55-1.30); POTASSIUM 4.1 MMOL/L (3.5-5.1); SODIUM 142 MMOL/L (136-145)
[2017-10-22 08:48] VITALS: BP 160/81
[2017-10-22] MEDS: Vitamin A&D Oint 2oz Tube TOPIC SCH (09:00)
[2017-10-22] MEDS: Heparin 5000 units/ml inj SUBQ SCH (09:00)
[2017-10-22] MEDS: Dronabinol 2.5mg Cap ORAL SCH (09:00)
[2017-10-22] MEDS ORDERED: Fleet's Mineral Oil Enema RECTAL ONE (11:15)
[2017-10-22 11:50] VITALS: BP 158/73
[2017-10-22] MEDS ORDERED: KLONOPIN2 MG PO (12:00)
[2017-10-22] MEDS ORDERED: REMERON15 M1 ORAL (12:01)
--- NOTE | 2017-10-22 12:16 | General Surgery Progress Note ---
General Surgery-Progress Note Subjective Additional Comments doing well. cognitively improved. still has food aversion but states she attempts at times. chart reviewed and spoke with nursing staff. patient refusing almost all intervention. not taking meds. just states that she wants to talk to people and have people stay in her room with her. no n/v/f/c. when asked she refused meds, feeding tube, enema, stool softeners, and any intervention I offered her. Objective Last 24 Hour Vital Signs Date Time Temp Pulse Resp B/P (MAP) Pulse Ox O2 Delivery O2 Flow Rate FiO2 10/22/17 11:50 98.0 53 18 158/73 97 10/22/17 08:48 97.7 44 18 160/81 99 10/22/17 04:00 96.8 49 20 147/67 100 Room Air 10/22/17 00:00 96.6 45 20 132/72 99 Room Air 10/21/17 20:00 97.7 43 18 124/83 100 Room Air 10/21/17 16:00 97.7 49 20 146/76 99 Room Air I&O Intake and Output 10/21/17 10/22/17 19:00 07:00 Intake Total 800 ml 1060 ml Output Total 200 ml Balance 800 ml 860 ml Intake Oral 60 ml IV Total 800 ml 1000 ml Output Urine Total 200 ml # Voids 4 Cardiovascular: RSR Respiratory: clear Abdomen: soft, flat, non-tender, present bowel sounds Extremities: no tenderness Laboratory Tests Test 10/22/17 05:05 White Blood Count 6.3 K/UL (4.8-10.8) Red Blood Count 4.90 M/UL (4.20-5.40) Hemoglobin 15.3 G/DL (12.0-16.0) Hematocrit 43.6 % (37.0-47.0) Mean Corpuscular Volume 89 FL (80-99) Mean Corpuscular Hemoglobin 31.3 PG (27.0-31.0) H Mean Corpuscular Hemoglobin Concent 35.1 G/DL (32.0-36.0) Red Cell Distribution Width 10.7 % (11.6-14.8) L Platelet Count 215 K/UL (150-450) Mean Platelet Volume 7.1 FL (6.5-10.1) Neutrophils (%) (Auto) 50.7 % (45.0-75.0) Lymphocytes (%) (Auto) 37.5 % (20.0-45.0) Monocytes (%) (Auto) 8.8 % (1.0-10.0) Eosinophils (%) (Auto) 1.2 % (0.0-3.0) Basophils (%) (Auto) 1.7 % (0.0-2.0) Sodium Level 142 MMOL/L (136-145) Potassium Level 4.1 MMOL/L (3.5-5.1) Chloride Level 107 MMOL/L (98-107) Carbon Dioxide Level 22 MMOL/L (21-32) Anion Gap 13 mmol/L (5-15) Blood Urea Nitrogen 1 mg/dL (7-18) L Creatinine 0.6 MG/DL (0.55-1.30) Estimat Glomerular Filtration Rate > 60 mL/min (>60) Glucose Level 84 MG/DL (74-106) Calcium Level 9.3 MG/DL (8.5-10.1) Plan Problems: (1) Chronic abdominal pain Assessment & Plan: 67F with chronic abdominal pain, po intolerance, failure to thrive, with acute episode of abdominal pain. has long history of po intolerance and abdominal pain. has lost 40+ pounds over the last year because of this. states she was at [facility] with extensive work up but does not recall what or treatment. Currently pain improved but she is not willing to attempt oral intake. transferred from [place] for further care. leukocytosis resolved. bradycardic. no pain but serious food aversion. has emotional and mental issues that are apparent when she is interviewed. she refuses interventions when offered. she will agree to some (CT scan, IV fluids , now IV abx) but refuses to eat, take oral meds, feeds, etc. Repeat CT reviewed. possible colitis but after reviewing CT and physical exam clinically does not have colitis. no signs of vascular abnormality on CT as arteries are patent. psych consult reviewed. pending [facility] records. Requested records from [facility]. pending delivery -discussed calorie count with patient and . given noted intake will likely be low and will need alternate form of nutrition. would benefit from trial nasogastric feeding tube placement. given findings, history, and patients affect I believe a fair amount of this may be psychological. patient has serious blocks when it comes to care. she wants to live but does not want ANYthing done. she even gets upset when housecleaning cleans her room. she wants people at her bedside all day and states she is sad when she is alone. when given options she states she "cannot" have anything done. she does not want feeding tube, trial feeds, or anything. she just wants to be in the hospital with people around her to talk to. -okay for diet if patient will eat -Pending final calorie count -IV fluids -IV Abx -appreciate psych input. -chronic issues and patient continues to refuse all intervention. she is stable and otherwise well. needs placement all. no acute problems and the longer she stays in the hospital the higher the risk of her developing a secondary infection such as pneumonia. she has chronic medical issues that can be managed outpatient or in lower level of care as she is stable. okay to d/c from surgical standpoint. thank you for this consultation. Siva Avalos Oct 22, 2017 12:16
--- NOTE | 2017-10-22 12:49 | Infectious Diseases Prog Note ---
Assessment/Plan Assessment/Plan Assessment: Acute on chronic post-prandial abd pain- unclear etiology--?acute superimposed colitis per CT findings. DDx of Etiology of chronic abd pain is extensive and includes infectious, auto-immune (connective tissue disorders, vasculitis such as Polyarteritis nodosa), inflammatory and psychogenic/psicosomatic. As far of infectious process r/o HIV, mycobacterial, histoplasmosis and parasitic causes. Dry throat and difficulty swallowing also raises suspicion of auto-immune process/connective tissue disorder such as Scleroderma. -Patient had extensive w/u at [facility] (awaiting records). She is very anxious and exhibits dependency. Suspicion for psychosomatic process although evaluating for organic etiologies, which so far has been negative. -CT abd/p w/ : Apparent mild thickening of the wall of the descending colon not optimally evaluated on this study. Please correlate for colitis.Mild free fluid within the pelvis. Suggestion of fibroid uterus. Atherosclerotic vascular disease -non contrast CT (@[place])- jejunal wall thickening -CRP midly elevated at 4.8>2.5, ESR 31 -neg: HIV 1/2 ab (rapid test), u/a, RPR, hep panel, RF, CONTRERAS, ANCA -C3 low, C4 normal Failure to thrive Leukocytosis, resolved -afebrile s/p salpingo-oopherectomy for bening mass Plan: - DC Ceftriaxone and Flagyl abx d#5/5 for possible acute superimposed colitis - ok for discharge tomorrow am -10/19 SP Zosyn #3 -f/u HIV VL, Qtb gold, histoplasma ag urine and ab, CCP, UPEP/SPEP, o+p x3, giardia/cyclospora/isospora/microsporidum stool -f/u cx -Monitor CBC/BMP, temperatures -GI, surgery following -Psych f/u- patient very anxious -awaiting [facility] records Subjective Allergies: Coded Allergies: AMOXICILLIN (Verified Adverse Reaction, Unknown, 10/17/17) Patient reports she fainted a couple years ago when she took amoxicillin Subjective comfortable Objective Vital Signs Last 24 Hour Vital Signs Date Time Temp Pulse Resp B/P (MAP) Pulse Ox O2 Delivery O2 Flow Rate FiO2 10/22/17 11:50 98.0 53 18 158/73 97 10/22/17 08:48 97.7 44 18 160/81 99 10/22/17 04:00 96.8 49 20 147/67 100 Room Air 10/22/17 00:00 96.6 45 20 132/72 99 Room Air 10/21/17 20:00 97.7 43 18 124/83 100 Room Air 10/21/17 16:00 97.7 49 20 146/76 99 Room Air Height (Feet): 5 Weight (Pounds): 72 HEENT: anicteric Respiratory/Chest: normal breath sounds Cardiovascular: regular rhythm Abdomen: non distended Laboratory Tests Test 10/22/17 05:05 White Blood Count 6.3 K/UL (4.8-10.8) Red Blood Count 4.90 M/UL (4.20-5.40) Hemoglobin 15.3 G/DL (12.0-16.0) Hematocrit 43.6 % (37.0-47.0) Mean Corpuscular Volume 89 FL (80-99) Mean Corpuscular Hemoglobin 31.3 PG (27.0-31.0) H Mean Corpuscular Hemoglobin Concent 35.1 G/DL (32.0-36.0) Red Cell Distribution Width 10.7 % (11.6-14.8) L Platelet Count 215 K/UL (150-450) Mean Platelet Volume 7.1 FL (6.5-10.1) Neutrophils (%) (Auto) 50.7 % (45.0-75.0) Lymphocytes (%) (Auto) 37.5 % (20.0-45.0) Monocytes (%) (Auto) 8.8 % (1.0-10.0) Eosinophils (%) (Auto) 1.2 % (0.0-3.0) Basophils (%) (Auto) 1.7 % (0.0-2.0) Sodium Level 142 MMOL/L (136-145) Potassium Level 4.1 MMOL/L (3.5-5.1) Chloride Level 107 MMOL/L (98-107) Carbon Dioxide Level 22 MMOL/L (21-32) Anion Gap 13 mmol/L (5-15) Blood Urea Nitrogen 1 mg/dL (7-18) L Creatinine 0.6 MG/DL (0.55-1.30) Estimat Glomerular Filtration Rate > 60 mL/min (>60) Glucose Level 84 MG/DL (74-106) Calcium Level 9.3 MG/DL (8.5-10.1) Current Medications Medications (Trade) Dose Ordered Sig/Riaz Route PRN Reason Start Time Stop Time Status Last Admin Dose Admin Acetaminophen (Tylenol) 650 mg Q6H PRN ORAL Mild Pain/Temp > 100.5 10/21/17 18:30 11/16/17 18:29 Clonazepam (KlonoPIN) 1 mg BEDTIME ORAL 10/21/17 21:00 10/27/17 23:44 Dextrose/ Electrolytes 1,000 ml @ 100 mls/hr Q10H IV 10/21/17 19:30 11/16/17 19:29 10/22/17 06:42 Dronabinol (Marinol) 2.5 mg TID ORAL 10/21/17 21:00 11/17/17 20:59 Heparin Sodium (Porcine) (Heparin 5000 units/ml) 5,000 units EVERY 12 HOURS SUBQ 10/21/17 21:00 11/16/17 10:59 10/21/17 21:28 Metronidazole 100 ml @ 100 mls/hr Q8HR IVPB 10/21/17 22:00 10/26/17 13:59 10/22/17 06:41 Mirtazapine (Remeron) 15 mg BEDTIME ORAL 10/21/17 21:00 11/17/17 20:59 Morphine Sulfate (Morphine Sulfate) 2 mg Q6H PRN IVP Severe Pain (Pain Scale 7-10) 10/21/17 18:30 10/24/17 18:29 Ondansetron HCl (Zofran) 4 mg Q4H PRN IVP Nausea & Vomiting 10/21/17 19:00 11/16/17 10:59 Vitamin A/Vitamin D (A & D Oint) 1 applic EVERY 12 HOURS TOPIC 10/21/17 21:00 11/17/17 20:59 10/21/17 21:29 VICTOR HUGO TAVARES M.D. Oct 22, 2017 12:49
--- NOTE | 2017-10-22 14:55 | General Progress Note ---
Assessment/Plan Status: stable, progressing Assessment/Plan anxiety d/o depression -remeron -klonopin -d/w pt and Subjective Date patient seen: Oct 20, 2017 Neurologic/Psychiatric: Reports: anxiety, depressed, emotional problems Allergies: Coded Allergies: AMOXICILLIN (Verified Adverse Reaction, Unknown, 10/17/17) Patient reports she fainted a couple years ago when she took amoxicillin Subjective the pt is severely anxious. the pt was irritable and believes she is suffering from serious illness. the pt at bedside. the pt refused to take psychotropics. the pt is having a poor insight. Objective Last 24 Hour Vital Signs Date Time Temp Pulse Resp B/P (MAP) Pulse Ox O2 Delivery O2 Flow Rate FiO2 10/22/17 11:50 98.0 53 18 158/73 97 10/22/17 08:48 97.7 44 18 160/81 99 10/22/17 04:00 96.8 49 20 147/67 100 Room Air 10/22/17 00:00 96.6 45 20 132/72 99 Room Air 10/21/17 20:00 97.7 43 18 124/83 100 Room Air 10/21/17 16:00 97.7 49 20 146/76 99 Room Air Intake and Output 10/21/17 10/22/17 19:00 07:00 Intake Total 800 ml 1060 ml Output Total 200 ml Balance 800 ml 860 ml Intake Oral 60 ml IV Total 800 ml 1000 ml Output Urine Total 200 ml # Voids 4 Laboratory Tests 10/22/17 05:05: White Blood Count 6.3, Red Blood Count 4.90, Hemoglobin 15.3, Hematocrit 43.6, Mean Corpuscular Volume 89, Mean Corpuscular Hemoglobin 31.3H, Mean Corpuscular Hemoglobin Concent 35.1, Red Cell Distribution Width 10.7L, Platelet Count 215, Mean Platelet Volume 7.1, Neutrophils (%) (Auto) 50.7, Lymphocytes (%) (Auto) 37.5, Monocytes (%) (Auto) 8.8, Eosinophils (%) (Auto) 1.2, Basophils (%) (Auto ) 1.7, Sodium Level 142, Potassium Level 4.1, Chloride Level 107, Carbon Dioxide Level 22, Anion Gap 13, Blood Urea Nitrogen 1L, Creatinine 0.6, Estimat Glomerular Filtration Rate > 60, Glucose Level 84, Calcium Level 9.3 Height (Feet): 5 Weight (Pounds): 72 General Appearance: no apparent distress, alert, thin Neurologic: alert, oriented x 3, responsive, depressed affect Berto Cardozo M.D. Oct 22, 2017 14:55
--- NOTE | 2017-10-22 14:56 | General Progress Note ---
Assessment/Plan Status: stable, unchanged Assessment/Plan anxiety d/o depression -remeron -klonopin -d/w pt and Subjective Date patient seen: Oct 21, 2017 Neurologic/Psychiatric: Reports: anxiety, depressed, emotional problems Allergies: Coded Allergies: AMOXICILLIN (Verified Adverse Reaction, Unknown, 10/17/17) Patient reports she fainted a couple years ago when she took amoxicillin Subjective the pt is gaurded. transfered to [facility]. the pt is the same. the pt took offence when spoke about psych problems the pt is severely anxious. the pt was irritable and believes she is suffering from serious illness. the pt at bedside. the pt refused to take psychotropics. the pt is having a poor insight. Objective Last 24 Hour Vital Signs Date Time Temp Pulse Resp B/P (MAP) Pulse Ox O2 Delivery O2 Flow Rate FiO2 10/22/17 11:50 98.0 53 18 158/73 97 10/22/17 08:48 97.7 44 18 160/81 99 10/22/17 04:00 96.8 49 20 147/67 100 Room Air 10/22/17 00:00 96.6 45 20 132/72 99 Room Air 10/21/17 20:00 97.7 43 18 124/83 100 Room Air 10/21/17 16:00 97.7 49 20 146/76 99 Room Air Intake and Output 10/21/17 10/22/17 19:00 07:00 Intake Total 800 ml 1060 ml Output Total 200 ml Balance 800 ml 860 ml Intake Oral 60 ml IV Total 800 ml 1000 ml Output Urine Total 200 ml # Voids 4 Laboratory Tests 10/22/17 05:05: White Blood Count 6.3, Red Blood Count 4.90, Hemoglobin 15.3, Hematocrit 43.6, Mean Corpuscular Volume 89, Mean Corpuscular Hemoglobin 31.3H, Mean Corpuscular Hemoglobin Concent 35.1, Red Cell Distribution Width 10.7L, Platelet Count 215, Mean Platelet Volume 7.1, Neutrophils (%) (Auto) 50.7, Lymphocytes (%) (Auto) 37.5, Monocytes (%) (Auto) 8.8, Eosinophils (%) (Auto) 1.2, Basophils (%) (Auto ) 1.7, Sodium Level 142, Potassium Level 4.1, Chloride Level 107, Carbon Dioxide Level 22, Anion Gap 13, Blood Urea Nitrogen 1L, Creatinine 0.6, Estimat Glomerular Filtration Rate > 60, Glucose Level 84, Calcium Level 9.3 Height (Feet): 5 Weight (Pounds): 72 General Appearance: no apparent distress, alert, agitated, thin Neurologic: alert, oriented x 3, responsive Berto Cardozo M.D. Oct 22, 2017 14:56
--- NOTE | 2017-10-22 16:14 | Pulmonology Progress Note ---
Assessment/Plan Problems: (1) Bradycardia (2) Severe protein-calorie malnutrition (3) Abdominal pain (4) History of food intolerance (5) Failure to thrive in adult Assessment/Plan no new complains symptomatic treatment cardiology to see echo cardiogram d/w with ID transfer to med/surg f/rose by psychiatry Subjective ROS Limited/Unobtainable: No Constitutional: Reports: no symptoms HEENT: Repors: no symptoms Allergies: Coded Allergies: AMOXICILLIN (Verified Adverse Reaction, Unknown, 10/17/17) Patient reports she fainted a couple years ago when she took amoxicillin Objective Last 24 Hour Vital Signs Date Time Temp Pulse Resp B/P (MAP) Pulse Ox O2 Delivery O2 Flow Rate FiO2 10/22/17 11:50 98.0 53 18 158/73 97 10/22/17 08:48 97.7 44 18 160/81 99 10/22/17 04:00 96.8 49 20 147/67 100 Room Air 10/22/17 00:00 96.6 45 20 132/72 99 Room Air 10/21/17 20:00 97.7 43 18 124/83 100 Room Air Intake and Output 10/21/17 10/22/17 19:00 07:00 Intake Total 800 ml 1060 ml Output Total 200 ml Balance 800 ml 860 ml Intake Oral 60 ml IV Total 800 ml 1000 ml Output Urine Total 200 ml # Voids 4 Objective General Appearance: WD/WN HEENT: normocephalic, atraumatic Respiratory/Chest: chest wall non-tender, lungs clear Cardiovascular: normal peripheral pulses, normal rate Abdomen: normal bowel sounds, soft, non tender Genitourinary: normal external genitalia Extremities: no cyanosis Neurologic/Psychiatric: sanding machine tender automatic II-XII grossly normal, no motor/sensory deficits Lymphatic: no neck adenopathy Laboratory Tests 10/22/17 05:05: White Blood Count 6.3, Red Blood Count 4.90, Hemoglobin 15.3, Hematocrit 43.6, Mean Corpuscular Volume 89, Mean Corpuscular Hemoglobin 31.3H, Mean Corpuscular Hemoglobin Concent 35.1, Red Cell Distribution Width 10.7L, Platelet Count 215, Mean Platelet Volume 7.1, Neutrophils (%) (Auto) 50.7, Lymphocytes (%) (Auto) 37.5, Monocytes (%) (Auto) 8.8, Eosinophils (%) (Auto) 1.2, Basophils (%) (Auto ) 1.7, Sodium Level 142, Potassium Level 4.1, Chloride Level 107, Carbon Dioxide Level 22, Anion Gap 13, Blood Urea Nitrogen 1L, Creatinine 0.6, Estimat Glomerular Filtration Rate > 60, Glucose Level 84, Calcium Level 9.3 MYESHA OVERTON Oct 22, 2017 16:14
--- NOTE | 2017-10-22 16:17 | General Progress Note ---
Assessment/Plan Assessment/Plan Assessment/Plan Problems: (1) Anxiety ICD Codes: F41.9 - Anxiety disorder, unspecified SNOMED: 09817730 (2) Weight loss ICD Codes: R63.4 - Abnormal weight loss SNOMED: 34994970, 982811935 (3) Colitis ICD Codes: K52.9 - Noninfective gastroenteritis and colitis, unspecified SNOMED: 25123398 (4) Severe protein-calorie malnutrition ICD Codes: E43 - Unspecified severe protein-calorie malnutrition SNOMED: 144313943 (5) History of food intolerance ICD Codes: Z87.19 - Personal history of other diseases of the digestive system SNOMED: 393922453 (6) Failure to thrive in adult / Anorexia ICD Codes: R62.7 - Adult failure to thrive SNOMED: 588321763 (7) Chronic abdominal pain ICD Codes: R10.9 - Unspecified abdominal pain; G89.29 - Other chronic pain SNOMED: 215877732 Assessment/Plan CT AP reviewed >> possible colitis refused colonoscopy refusing meds FLD, adv as tolerated calorie count x 48 hours add marinol colace ppi IV IV hydration + electrolyte correction collect stool studies, cdiff if patient has diarrhea fu labs, CEA fu pysc recs Subjective Allergies: Coded Allergies: AMOXICILLIN (Verified Adverse Reaction, Unknown, 10/17/17) Patient reports she fainted a couple years ago when she took amoxicillin Subjective Seen earlier today feels well no abd pain appetite poor Objective Last 24 Hour Vital Signs Date Time Temp Pulse Resp B/P (MAP) Pulse Ox O2 Delivery O2 Flow Rate FiO2 10/22/17 11:50 98.0 53 18 158/73 97 10/22/17 08:48 97.7 44 18 160/81 99 10/22/17 04:00 96.8 49 20 147/67 100 Room Air 10/22/17 00:00 96.6 45 20 132/72 99 Room Air 10/21/17 20:00 97.7 43 18 124/83 100 Room Air Intake and Output 10/21/17 10/22/17 19:00 07:00 Intake Total 800 ml 1060 ml Output Total 200 ml Balance 800 ml 860 ml Intake Oral 60 ml IV Total 800 ml 1000 ml Output Urine Total 200 ml # Voids 4 Laboratory Tests 10/22/17 05:05: White Blood Count 6.3, Red Blood Count 4.90, Hemoglobin 15.3, Hematocrit 43.6, Mean Corpuscular Volume 89, Mean Corpuscular Hemoglobin 31.3H, Mean Corpuscular Hemoglobin Concent 35.1, Red Cell Distribution Width 10.7L, Platelet Count 215, Mean Platelet Volume 7.1, Neutrophils (%) (Auto) 50.7, Lymphocytes (%) (Auto) 37.5, Monocytes (%) (Auto) 8.8, Eosinophils (%) (Auto) 1.2, Basophils (%) (Auto ) 1.7, Sodium Level 142, Potassium Level 4.1, Chloride Level 107, Carbon Dioxide Level 22, Anion Gap 13, Blood Urea Nitrogen 1L, Creatinine 0.6, Estimat Glomerular Filtration Rate > 60, Glucose Level 84, Calcium Level 9.3 Height (Feet): 5 Weight (Pounds): 72 Objective Thin WW NCAT supple CTA RRR Soft ND NT no edema non focal OSMIN RUGGIERO Oct 22, 2017 16:17
--- NOTE | 2017-10-26 08:34 | Discharge Summary ---
Discharge Summary Hospital Course Date of Admission Oct 17, 2017 at 15:32 Date of Discharge Oct 22, 2017 at 12:30 Admitting Diagnosis HPI Myranda Raymond is a 67 year old female who was admitted on Oct 17, 2017 at 15:32 for Abdominal Pain Hospital Course dc summary # [id number] Discharge Medications Continued Medications: Clonazepam (Klonopin) 2 Mg Tablet 1 MG PO HS, #30 TAB Mirtazapine (Remeron) 15 Mg Tab.rapdis 15 MG ORAL BEDTIME, #30 TAB No Known Medications* (NKM - No Known Medications*) . 0 ., 0 Refills Discharge Condition Upon Discharge: stable Discharge Disposition Patient was discharged to Home (01) Discharge Diagnoses: Discharge Instructions Discharge Instructions Special Instructions I have been assigned to complete a D/C Summary on this account. I was not involved in the patient management Corin Paul NP (Vanchtein) Oct 26, 2017 08:34
--- NOTE | 2017-10-27 03:32 | Discharge Summary 2 SIG ---
DATE OF ADMISSION: 10/17/2017 DATE OF DISCHARGE: 10/22/2017 REASON FOR ADMISSION: 67-year-old female without any significant past medical history, except bilateral salpingo-oophorectomy due to the benign mass in 2017, presented initially to [facility] with complaint of increased abdominal pain. After initial workup, which included noncontrast CT of abdomen and pelvis, which showed thickened area of jejunum, but otherwise was unremarkable. The patient was transferred to [facility] for further management. The patient reported food intolerance, lost over 40 pounds over the last year. The patient complained of food aversion and any time she eats, she vomits. Her stated that the patient had extensive workup at [facility], which apparently was negative. Upon evaluation,white blood count-12.4 and low albumin, otherwise stable hemoglobin and hematocrit, electrolytes, renal parameters, and liver enzymes. The patient was admitted with abdominal pain, enteritis, failure to thrive, weight loss, severe protein-calorie malnutrition, and history of food intolerance. HOSPITAL COURSE: The patient admitted. The patient was initially NPO. GI, Surgery, and Psychiatric consults were requested. The patient started on the IV fluids and empiric antibiotics. Infectious Disease consult was requested as well. Surgeon seen and evaluated the patient. CT of the abdomen and pelvis revealed possible colitis and fibroid uterus, otherwise no significant changes. According to surgeon, who closely followed the patient , physical exam clinically did not have any colitis, and no sign of vascular abnormality on CT, since all arteries were patent. Records from [facility] were essentially negative. The patient was started on calorie count. A trial of Marinol attempted. Infectious Disease closely followed the patient. The patient undergone Zosyn for three days. Leukocytosis resolved. No fever. Infectious Disease recommended to keep the patient off antibiotics. The patient also undergone substantial testing. HIV screen was negative. Hepatitis panel was negative. Histoplasma screen was negative. RPR was nonreactive. CONTRERAS screen was negative. Rheumatoid factor was negative. ID recommended stool studies to rule out paracytic infection. GI closely followed the patient. The patient slowly started on diet with a calorie count. Diet was closely monitored. The patient refused colonoscopy as offered by GI specialist. The patient was on the IV proton pump inhibitor. Electrolytes were closely monitored and corrected as needed. Serum protein electrophoresis was within normal limits. Stool softener added. Line Therapist had seen the patient for sinus bradycardia. The patient had sinus bradycardia on telemetry. No evidence of arrhythmia. Per health and wellness instructor, No need for pacemaker. Sinus bradycardia ,at least partially, was vagal mediated and likely partially due to malnutrition. Cardiology discussed the findings with the patient and her and recommended to avoid negative chronotropic agents in the future. Psychiatrist seen and evaluated the patient and diagnosed the patient with anxiety disorder and depression. Psychiatrist optimized psychiatric medication regimen. Wound care nurse seen the patient for sacral coccyx deep tissue injury present on admission. Wound care provided as per wound care nurse recommendation. Nutritional recommendations were implemented. After reviewing all workup from [facility], it appeared that the patient likely had a chronic issue with food aversion. The patient continued to refuse all interventions, refused colonoscopy, declined feeding tube either nasogastric or G-tube. The patient clearly had psychogenic issues and just wanted to be surrounded by people and not to be alone. All doctors concurred that the etiology of al symptoms, was likely psychogenic , based on negative workup at both hospitals. The patient was stable for discharge home. The patient to follow up with the primary medical doctor. FINAL DIAGNOSES: 1. Acute on chronic postprandial abdominal pain, unclear etiology, suspect psychogenic. 2. Severe protein-calorie malnutrition. 3. Weight loss. 4. Sinus bradycardia. 5. Anxiety disorder. 6. Depression. 7. Failure to thrive. 8. Sacral coccyx deep tissue injury present on admission. DISCHARGE MEDICATIONS: See medication reconciliation list. DISCHARGE INSTRUCTIONS: The patient was discharged home; follow up with the primary medical doctor. Wang Mendoza M.D. I have been assigned to dictate discharge summary on this account and I was not involved in the patient's management. Corin Puentevíctor N.P. DR: SONNY JOB#: [id number] CC: STEFFANY
== END 2017-10-22 12:30 | disposition home or self-care (01) | DRG 391 ==
LOC: 4E 15:32 → 2E 10-18 10:25 → 4W 10-21 18:09
DX: R10.32 Left lower quadrant pain (principal); E43 Unspecified severe protein-calorie malnutrition; Z68.1 Body mass index [BMI] 19.9 or less, adult; F45.41 Pain disorder exclusively related to psychological factors; K52.9 Noninfective gastroenteritis and colitis, unspecified; R62.7 Adult failure to thrive; G89.29 Other chronic pain; R00.1 Bradycardia, unspecified; Z88.1 Allergy status to other antibiotic agents; F41.9 Anxiety disorder, unspecified; Z87.19 Personal history of other diseases of the digestive system; R63.4 Abnormal weight loss; F32.9 Major depressive disorder, single episode, unspecified; Z90.722 Acquired absence of ovaries, bilateral; Z90.79 Acquired absence of other genital organ(s)
CPT/HCPCS: 36415; 74177; 80048; 80053; 81003; 82150; 82378; 82595; 83605; 83690; 83735; 84100; 84134; 84165; 85025; 85651; 86021; 86039; 86140; 86160; 86171; 86200; 86431; 86592; 86703; 86704; 86705; 86709; 86803; 87340; 87385; 87517; 87536; 93005; 93306; J8499